=== PATIENT | male | born 1950 | race Caucasian/White ===

== ENCOUNTER 2016-09-24 02:21 | Emergency (ER) | payer MEDICARE, MEDICAID ==
[2016-09-24] MEDS ORDERED: PREDNISONE 20 MG TABLET PO ONE (02:42)
[2016-09-24] MEDS ORDERED: IPRATROPIUM/ALBUTEROL 0.5-2.5 MG/3 ML AMPUL NEB ONE ×3 (02:42→04:14)
[2016-09-24 03:01] LABS: ABSOLUTE BASOPHILS # (AUTO) 0.1 10^3/uL (0.0-0.2); ABSOLUTE EOSINOPHILS # (AUTO) 0.6 10^3/uL (0.0-0.6); ABSOLUTE LYMPHOCYTES (AUTO) 3.2 10^3/uL (0.5-4.7); ABSOLUTE MONOCYTES (AUTO) 1.7 10^3/uL (0.1-1.4); ABSOLUTE NEUT (AUTO) 4.6 10^3/uL (1.7-8.2); BASOPHILS % (AUTO) 0.8 % (0-2); EOSINOPHILS % (AUTO) 5.8 % (0-6); HEMATOCRIT 46.5 % (37.9-51.0); HGB HCT DIFFERENCE -1.5; LYMPHOCYTES % (AUTO) 31.5 % (13-45); MEAN CORPUSCULAR HEMOGLOBIN 29.4 pg (27.0-33.4); MEAN CORPUSCULAR HGB CONC 32.2 g/dL (32.0-36.0); MEAN CORPUSCULAR VOLUME 91 fl (80-97); RED BLOOD COUNT 5.09 10^6/uL (4.35-5.55); RED CELL DISTRIBUTION WIDTH 13.2 % (11.5-14.0); SEGMENTED NEUTROPHILS % (AUTO) 44.9 % (42-78); WHITE BLOOD COUNT 10.2 10^3/uL (4.0-10.5)
[2016-09-24 03:29] LABS: CREATINE KINASE MB 0.29 ng/mL (<4.55)
[2016-09-24] MEDS: ALBUTEROL SULFATE 0.083% NEB 2.5 MG/3 ML AMPUL NEB SCH ×2 (03:29→04:39)
[2016-09-24 03:30] LABS: ALBUMIN 3.7 g/dL (3.5-5.0); ALKALINE PHOSPHATASE 154 U/L (38-126); ANION GAP 12 (5-19); ASPARTATE AMINO TRANSFERASE 47 U/L (17-59); BILIRUBIN,TOTAL 0.5 mg/dL (0.2-1.3); BLOOD UREA NITROGEN 10 mg/dL (7-20); CALCIUM 9.7 mg/dL (8.4-10.2); CARBON DIOXIDE 29 mmol/L (22-30); CHLORIDE 100 mmol/L (98-107); CREATINE KINASE 29 U/L (55-170); CREATININE RESULT 0.83 mg/dL (0.52-1.25); GLUCOSE 258 mg/dL (75-110); POTASSIUM 4.1 mmol/L (3.6-5.0); SODIUM 140.9 mmol/L (137-145)
[2016-09-24 03:36] LABS: TROPONIN I < 0.012 ng/mL
[2016-09-24 03:48] LABS: ALANINE AMINOTRANSFERASE 37 U/L (21-72)
[2016-09-24] MEDS ORDERED: NORMAL SALINE 1000 ML 1,000 ML IV ONE (04:14)
--- NOTE | 2016-09-24 04:18 | ER Document Report ---
ED Respiratory Problem - General Chief Complaint: Breathing Difficulty Stated Complaint: DIFFICULTY BREATHING Time seen by provider: 04:15 Notes: Patient is a 66-year-old male that comes by EMS for chief complaint of difficulty breathing, patient states that for over a week he has had cough and wheezing, patient smokes, has a known history of COPD, patient is not on oxygen at home. Patient denies fever, chest pain, headache, abdominal pain. Past medical history of hypertension and diabetes. TRAVEL OUTSIDE OF THE [place] IN LAST 30 DAYS: No - Related Data Allergies/Adverse Reactions: Corticosteroids (Glucocorticoids) Allergy (Unknown, Verified 09/24/16 07:45) naproxen Allergy (Verified 09/24/16 07:45) Past Medical History - General Information source: Patient - Social History Smoking Status: Current Every Day Smoker Chew tobacco use (# tins/day): No Frequency of alcohol use: None Drug Abuse: None Lives with: Alone Family History: Reviewed & Not Pertinent Patient has suicidal ideation: No Patient has homicidal ideation: No - Past Medical History Cardiac Medical History: Reports: Hx Hypertension Pulmonary Medical History: Reports: Hx Bronchitis, Hx COPD, Hx Tuberculosis Neurological Medical History: Reports: Hx Cerebrovascular Accident, Hx Seizures Endocrine Medical History: Reports: Hx Diabetes Mellitus Type 2 Renal/ Medical History: Denies: Hx Peritoneal Dialysis GI Medical History: Reports: Hx Gastroesophageal Reflux Disease, Hx Ulcer Musculoskeltal Medical History: Reports Hx Arthritis Psychiatric Medical History: Reports: Hx Depression Past Surgical History: Reports: Hx Cholecystectomy - Immunizations Hx Diphtheria, Pertussis, Tetanus Vaccination: Yes Review of Systems - Review of Systems Constitutional: No symptoms reported EENT: No symptoms reported Cardiovascular: No symptoms reported Respiratory: See HPI Gastrointestinal: No symptoms reported Genitourinary: No symptoms reported Male Genitourinary: No symptoms reported Musculoskeletal: No symptoms reported Skin: No symptoms reported Hematologic/Lymphatic: No symptoms reported Neurological/Psychological: No symptoms reported Physical Exam - Vital signs Vitals: Pulse Ox 94 09/24/16 02:40 Interpretation: Normal - General General appearance: Appears well, Alert - HEENT Head: Normocephalic, Atraumatic Eyes: Normal Extraocular movements intact: Yes Eyelashes: Normal - Respiratory Respiratory status: Tachypnea - Mild Chest status: Nontender Breath sounds: Decreased air movement, Nonproductive cough, Wheezing - Cardiovascular Rhythm: Regular. No: Tachycardia Heart sounds: Normal auscultation, S1 appreciated, S2 appreciated Murmur: No - Abdominal Inspection: Normal Distension: No distension Bowel sounds: Normal Tenderness: Nontender. No: Tender Organomegaly: No organomegaly - Back Back: Normal, Nontender - Extremities General upper extremity: Normal inspection, Nontender, Normal color, Normal ROM , Normal temperature General lower extremity: Normal inspection, Nontender, Normal color, Normal ROM , Normal temperature, Normal weight bearing. No: Juan's sign - Neurological Neuro grossly intact: Yes Cognition: Normal Orientation: AAOx4 Miki Coma Scale Eye Opening: Spontaneous Miki Coma Scale Verbal: Oriented Miki Coma Scale Motor: Obeys Commands Miki Coma Scale Total: 15 Speech: Normal Motor strength normal: LUE, RUE, LLE, RLE Sensory: Normal - Psychological Associated symptoms: Normal affect, Normal mood - Skin Skin Temperature: Warm Skin Moisture: Dry Skin Color: Normal Course - Re-evaluation Re-evalutation: CBC, chemistry unremarkable with mild hyperglycemia. Patient's symptoms of tachypnea resolved, patient has some wheezing on examination which is most likely baseline. Patient no longer complaining of shortness of breath, smiling , talkative, ambulates around the room, pulse oxygenation 94% despite ambulation around the halls. Chest x-ray unremarkable except for 3 cm left- sided lung abnormality probably a mass. Discussed with patient, patient states he will follow-up with primary care in regards to this. Does not appear to be significantly larger. Discussed that this definitely could be cancer and patient needs to be seen for this. Patient states he will do this within the following week, he states that he'll return for any concerning or worsening symptoms. Discussed using prednisone with patient's diabetes, he states he will take his diabetic medications and be careful about what he eats. Patient repeats he is ready to go home. - Vital Signs Vital signs: Temp Pulse Resp BP Pulse Ox 98.2 F 16 126/74 H 90 L 09/24/16 02:45 09/24/16 07:00 09/24/16 06:00 09/24/16 07:00 - Laboratory Result Diagrams: 09/24/16 02:33 09/24/16 02:33 Laboratory results interpreted by me: 09/24/16 09/24/16 02:33 02:33 Monocytes % 17.0 H Absolute Monocytes 1.7 H Glucose 258 H Alkaline Phosphatase 154 H Creatine Kinase 29 L Discharge - Discharge Clinical Impression: Wheezing, COPD exacerbation, Abnormal chest x-ray Condition: Stable Disposition: HOME, SELF-CARE Additional Instructions: Your workup indicates a COPD exacerbation. Take the prednisone, take diabetes medication, avoid sugary foods and carbohydrates because prednisone can raise your blood sugar. Take azithromycin antibiotic as directed. Please follow-up with your provider within the next several days. Your chest x-ray shows a left-sided 3 cm lung mass. This is concerning for cancer needs to be further evaluated. Return to emergency department for any concerning or worsening symptoms. Prescriptions: Azithromycin [Zithromax 250 mg Tablet] 250 mg PO ASDIR PRN #6 tablet PRN Reason: Prednisone [Deltasone 10 mg Tablet] 10 mg PO ASDIR PRN #21 tablet PRN Reason:
[2016-09-24] MEDS: MAGNESIUM SULFATE/D5W 100 ML IV SCH ×2 (04:45→06:00)
[2016-09-24 09:30] VITALS: BP 124/98
--- NOTE | 2016-09-24 10:04 | EKG REPORT ---
SEVERITY:- BORDERLINE ECG - SINUS TACHYCARDIA WITH IRREGULAR RATE 88-152 BORDERLINE T WAVE ABNORMALITIES : Confirmed by: Hermann Nieto MD 24-Sep-2016 10:04:01
== END 2016-09-24 08:50 | disposition home or self-care (01) ==
LOC: ER 02:21
DX: J44.1 Chronic obstructive pulmonary disease with (acute) exacerbation (principal); R05 Cough; R91.8 Other nonspecific abnormal finding of lung field; R06.82 Tachypnea, not elsewhere classified; I10 Essential (primary) hypertension; E11.65 Type 2 diabetes mellitus with hyperglycemia; F17.200 Nicotine dependence, unspecified, uncomplicated; Z88.8 Allergy status to other drugs, medicaments and biological substances; Z86.73 Personal history of transient ischemic attack (TIA), and cerebral infarction without residual deficits
CPT/HCPCS: 93005; 94640 ×2; 99285; 96365; 36415; 82553; 82550; 85025; 80053; 84484; 83880; 71010; 93010; J3475; A9270 ×3; J7030; J7512; J7620

== ENCOUNTER 2016-10-24 22:38 | Inpatient (IN) | payer MEDICARE, MEDICAID ==
[2016-10-25] MEDS ORDERED: ALBUTEROL SULFATE 0.083% NEB 2.5 MG/3 ML AMPUL NEB ONE ×2 (01:28→04:29)
[2016-10-25] MEDS ORDERED: NORMAL SALINE 1000 ML 1,000 ML IV ONE (01:30)
[2016-10-25] MEDS ORDERED: MAGNESIUM SULFATE/D5W 100 ML IV SCH (01:30)
[2016-10-25] MEDS ORDERED: METHYLPREDNISOLONE INJ 125 MG/2 ML SDV IV ONE (01:30)
[2016-10-25 02:39] LABS: ABSOLUTE BASOPHILS # (AUTO) 0.1 10^3/uL (0.0-0.2); ABSOLUTE EOSINOPHILS # (AUTO) 0.7 10^3/uL (0.0-0.6); ABSOLUTE LYMPHOCYTES (AUTO) 2.1 10^3/uL (0.5-4.7); ABSOLUTE MONOCYTES (AUTO) 1.3 10^3/uL (0.1-1.4); ABSOLUTE NEUT (AUTO) 6.7 10^3/uL (1.7-8.2); BASOPHILS % (AUTO) 0.6 % (0-2); EOSINOPHILS % (AUTO) 6.4 % (0-6); HEMATOCRIT 45.1 % (37.9-51.0); HEMOGLOBIN 15.2 g/dL (13.5-17.0); HGB HCT DIFFERENCE 0.5; LYMPHOCYTES % (AUTO) 19.4 % (13-45); MEAN CORPUSCULAR HEMOGLOBIN 29.9 pg (27.0-33.4); MEAN CORPUSCULAR HGB CONC 33.7 g/dL (32.0-36.0); MEAN CORPUSCULAR VOLUME 89 fl (80-97); MONOCYTES % (AUTO) 12.3 % (3-13); RED BLOOD COUNT 5.08 10^6/uL (4.35-5.55); SEGMENTED NEUTROPHILS % (AUTO) 61.3 % (42-78)
[2016-10-25 02:50] LABS: ANION GAP 13 (5-19); BLOOD UREA NITROGEN 9 mg/dL (7-20); CALCIUM 9.8 mg/dL (8.4-10.2); CARBON DIOXIDE 26 mmol/L (22-30); CHLORIDE 102 mmol/L (98-107); CREATININE RESULT 0.84 mg/dL (0.52-1.25); GLUCOSE 214 mg/dL (75-110); POTASSIUM 4.3 mmol/L (3.6-5.0)
[2016-10-25] MEDS ORDERED: IPRATROPIUM/ALBUTEROL 0.5-2.5 MG/3 ML AMPUL NEB ONE (03:18)
[2016-10-25] MEDS ORDERED: DOXYCYCLINE HYCLATE 100 MG TABLET PO ONE (03:20)
--- NOTE | 2016-10-25 03:20 | ER Document Report ---
ED General - General Chief Complaint: Shortness Of Breath Stated Complaint: SHORTNESS OF BREATH Notes: Patient is a 66-year-old male with past history of COPD, active smoker, a diagnosis of a lung mass in September 2016 for which she has yet to follow-up, and hypertension who presents with 2 days of progressively worsening shortness of breath. States he's been using his albuterol inhaler home with minimal to no improvement of symptoms. States he's had similar symptoms in the past with COPD exacerbations. His symptoms are worsened by smoking and exertion. He has not seen his primary care doctor regarding today's concerns. He denies any fever, nausea, vomiting or diarrhea. No chest pain. TRAVEL OUTSIDE OF THE [place] IN LAST 30 DAYS: No - Related Data Allergies/Adverse Reactions: naproxen Allergy (Verified 10/25/16 01:31) Past Medical History - General Information source: Patient - Social History Smoking Status: Current Every Day Smoker Frequency of alcohol use: None Drug Abuse: None Lives with: Spouse/Significant other Family History: Reviewed & Not Pertinent - Past Medical History Cardiac Medical History: Reports: Hx Hypertension Pulmonary Medical History: Reports: Hx Bronchitis, Hx COPD, Hx Tuberculosis Neurological Medical History: Reports: Hx Cerebrovascular Accident, Hx Seizures Endocrine Medical History: Reports: Hx Diabetes Mellitus Type 2 Renal/ Medical History: Denies: Hx Peritoneal Dialysis GI Medical History: Reports: Hx Gastroesophageal Reflux Disease, Hx Ulcer Musculoskeltal Medical History: Reports Hx Arthritis Psychiatric Medical History: Reports: Hx Depression Past Surgical History: Reports: Hx Cholecystectomy - Immunizations Hx Diphtheria, Pertussis, Tetanus Vaccination: Yes Review of Systems - Review of Systems Notes: Constitutional: Negative for fever. HENT: Negative for sore throat. Eyes: Negative for visual changes. Cardiovascular: Negative for chest pain. Respiratory: Positive for shortness of breath and cough Gastrointestinal: Negative for abdominal pain, vomiting or diarrhea. Genitourinary: Negative for dysuria. Musculoskeletal: Negative for back pain. Skin: Negative for rash. Neurological: Negative for headaches, weakness or numbness. 10 point ROS negative except as marked above and in HPI. Physical Exam - Vital signs Vitals: Temp Pulse Resp BP Pulse Ox 97.8 F 103 H 18 124/82 96 10/24/16 22:40 10/24/16 22:40 10/24/16 22:40 10/24/16 22:40 10/24/16 22:40 Interpretation: Tachycardic, Tachypneic Notes: PHYSICAL EXAMINATION: GENERAL: Appears to be in moderate respiratory distress. Somewhat ill in appearance. HEAD: Atraumatic, normocephalic. EYES: Pupils equal round and reactive to light, extraocular movements intact, sclera anicteric, conjunctiva are normal. ENT: nares patent, oropharynx clear without exudates. Dry mucous membranes. NECK: Normal range of motion, supple without lymphadenopathy LUNGS: Poor air movement bilaterally with diffuse expiratory wheezing in all lung jensen. HEART: Regular tachycardia without murmurs. ABDOMEN: Soft, nontender, normoactive bowel sounds. No guarding, no rebound. No masses appreciated. EXTREMITIES: Normal range of motion, no pitting or edema. No cyanosis. NEUROLOGICAL: No focal neurological deficits. Moves all extremities spontaneously and on command. PSYCH: Normal mood, normal affect. SKIN: Warm, Dry, normal turgor, no rashes or lesions noted. Course - Re-evaluation Re-evalutation: 10/25/16 0110 Patient arrives in moderate respiratory distress, retracting with poor air movement bilaterally. He has diffuse expiratory wheezing. Presentation is consistent with an exacerbation of his baseline COPD and he does admit to continued use of cigarettes. He was started on continuous nebulizer, IV magnesium and Solu-Medrol be administered. 0215-patient is continuing to have shortness of breath although his oxygen saturation has improved on nebulizers to 96%. He continues to have diffuse expiratory wheezing and tightness of air movement. His work of breathing is also moderately improved and his respiratory rate is now 23-24. 0315-patient continues to have wheezing, diminished air movement bilaterally and states that overall he does not feel much better after the initial nebulizers, magnesium and Solu-Medrol. Anticipate the patient will require admission 10/25/16 04:29 Patient continues to have pursed lip breathing, bilateral wheezing although no respiratory distress. Satting 96% on room air. Care transferred to Dr. Óscar Portillo while we await Dr. oMhr to be in a position to admit this patient. - Vital Signs Vital signs: Temp Pulse Resp BP Pulse Ox 97.8 F 103 H 21 H 119/72 95 10/24/16 22:40 10/24/16 22:40 10/25/16 01:10 10/25/16 01:10 10/25/16 01:10 - Laboratory Result Diagrams: 10/25/16 01:50 10/25/16 01:50 Laboratory results interpreted by me: 10/25/16 10/25/16 01:50 01:50 WBC 11.0 H Eosinophils % 6.4 H Absolute Eosinophils 0.7 H Glucose 214 H - Diagnostic Test Radiology reviewed: Image reviewed, Reports reviewed Radiology results interpreted by me: 10/25/16 03:22 Chest x-ray: Known left lung mass Critical Care Note - Critical Care Note Total time excluding time spent on procedures (mins): 35 Comments: Critical care time spent obtaining history from patient or surrogate, discussions with consultants, development of treatment plan with patient or surrogate, evaluation of patient's response to treatment, examination of patient , ordering and performing treatments and interventions, ordering and review of laboratory studies, re-evaluation of patient's condition, ordering and review of radiographic studies and review of old charts Discharge - Discharge Clinical Impression: COPD exacerbation, Respiratory distress, Mass of left lung Condition: Fair Disposition: ADMITTED INPATIENT Admitting Provider: Hospitalist Unit Admitted: [facility]
[2016-10-25] MEDS ORDERED: GUAIFENESIN SYRP 200 MG/10 ML UDC PO PRN (07:49)
[2016-10-25] MEDS ORDERED: DEXTROSE 50%-WATER 25 GM/50 ML DISP.SYRIN IV PRN ×2 (07:51)
[2016-10-25] MEDS ORDERED: GLUCAGON,HUMAN RECOMB 1 MG INJ IM PRN (07:51)
[2016-10-25] MEDS ORDERED: DEXTROSE 40% GEL 15 GM TUBE PO PRN ×2 (07:51)
[2016-10-25] MEDS: IPRATROPIUM/ALBUTEROL 0.5-2.5 MG/3 ML AMPUL NEB SCH ×3 (08:46→20:11)
[2016-10-25] MEDS ORDERED: LANSOPRAZOLE 30 MG TAB.RAP.DR PO ONE (09:00)
[2016-10-25] MEDS ORDERED: NICOTINE 21 MG/24 HR PATCH.TD24 TD PRN (09:36)
[2016-10-25] MEDS: ENOXAPARIN SODIUM INJ 40 MG/0.4 ML DISP.SYRIN SUBCUT SCH (09:51)
[2016-10-25] MEDS: CEFEPIME HCL 2 GM in DEXTROSE 5%-WATER 50 ML IV SCH ×2 (09:52→21:20)
[2016-10-25] MEDS: METHYLPREDNISOLONE INJ 125 MG/2 ML SDV IV SCH ×2 (09:52→17:02)
--- NOTE | 2016-10-25 09:52 | PDOC H&P ---
History of Present Illness Admission Date/PCP: 10/25/16 04:44 [facility] Patient complains of: Short of breath History of Present Illness: IVELISSE RITTER is a 66 year old male, with underlying COPD, 2-1/2-3 pack per day smoker, who presents to the emergency room for evaluation of a 2 to three-day history of slowly progressive worsening shortness of breath, in particular with much of any exertion or continued smoking. Dry cough. Little relief with his albuterol inhaler at home. Similar symptoms in past with COPD exacerbation. Denies fever chills, nausea vomiting, diarrhea or dysuria. No chest pain. Patient still experiencing a fair amount of wheezing despite multiple treatments given in the emergency room so far. Patient has been discussed with emergency room physician who evaluated the patient. . Laboratory results are listed in [place] and are reviewed. X-ray summary results are listed below, with full report(s) reviewed. . Social history/personal habits: . Currently a resident of [facility]. 3 children, all of whom are . No alcohol use for approximately a year; fairly heavy use in the past, by his description. No illicit drug use. Allergies/adverse reactions are listed in [place] and are reviewed. Home medications are to be reconciled by nursing staff in [facility] from the medication administration record from the [facility].. [facility] may not accurately reflect patient's true medications, dosages, and/or frequencies. REVIEW OF SYSTEMS: Constitutional: No fever or chills. Eyes: Wears glasses. ENT: No swallowing problems or complaints. No hearing problems or complaints. Pulmonary: See history and present illness. Cardiovascular: No current complaints, including chest pain. Gastrointestinal: No current complaints, including nausea or vomiting. Skin: Occasional forearm rash. Hematologic: Easy bruising. Neurologic: No current complaints, including numbness or tingling. Musculoskeletal: No current complaints, including painful joints. Psychiatric: Mild Anxiety depression; denies suicidal or homicidal ideation. Endocrine: No current complaints, including polyuria. Genitourinary: No current complaints, including dysuria. PHYSICAL EXAMINATION: 5 feet 5 inches tall. 98.6 kg. BMI 36.2 kg/m. Pulse 117 and regular. 95% saturation on room air. Respirations are 20 and unlabored. Blood pressure 104/ 55. Temperature 97.8. Obese somewhat chronically ill-appearing male who nevertheless appears approximately his stated age. Pleasant awake alert and cooperative. Slightly gruff personality. No obvious distress other than somewhat anxious. Skin is warm and dry. No grossly obvious evidence of rash in areas of skin examined. No subcutaneous nodules palpated. ENT: Hearing grossly normal to normal conversation. Tongue midline on protrusion pink and slightly tacky. Eyes: No scleral icterus. Pupils equal and reactive to light at 4 mm. [place] conjunctivae. Neck is supple and nontender to gentle active range of motion and palpation. Midline trachea. No palpable thyroid nodule mass enlargement or tenderness. Lymphatic: No palpable cervical or clavicular nodes. Neck and lymphatic exams limited by patient body habitus. Psychiatric: At best fair insight into acute and chronic medical issues. Oriented to time location and why here. Somewhat of a poor historian at times. Lungs: Auscultation reveals equal breath sounds bilaterally. No use of accessory respiratory muscles. Mild inspiratory and expiratory wheezing, brief , throughout both lungs. Cardiovascular: Heart regular rate and rhythm, without gallop murmur or rub. No carotid or abdominal aortic bruits. No ankle or pedal edema. Faintly palpable dorsalis pedis pulses. Abdomen: soft, slightly obese, nontender with positive bowel sounds. Unable to adequately evaluate abdomen for masses or organomegaly due to body habitus. Extremities: Feet are warm and dry. No calf tenderness to compression. No grossly obvious visual evidence of calf swelling. Gentle manipulation of lower extremities fails to reveal any obvious evidence of injury or instability to knees hips or ankles. Neurologic: Moves upper extremities grossly normally. Patellar reflexes absent. Absent Babinski. Light touch is intact at feet. Dorsiflexion and plantarflexion of feet 5 / 5 and symmetric. Past Medical History Cardiac Medical History: Reports: Hyperlipidema, Hypertension Denies: Congestive Heart Failure, DVT, Myocardial Infarction, Pulmonary Embolism Pulmonary Medical History: Reports: Bronchitis, Chronic Obstructive Pulmonary Disease (COPD), Tuberculosis - History of EENT Medical History: Reports: Eyes - Wears glasses; legally blind Denies: Ears, Throat Neurological Medical History: Reports: Ischemic CVA - Multiple prior, Seizures - Multiple prior, typically accompanying his strokes. Denies: Hemorrhagic CVA Endocrine Medical History: Denies: Diabetes Mellitus Type 1, Diabetes Mellitus Type 2, Hyperthyroidism, Hypothyroidism Renal/ Medical History: Reports: None GI Medical History: Reports: Gastroesophageal Reflux Disease, Peptic Ulcer Disease - Quite distant history Denies: Cirrhosis, Hepatitis Skin Medical History: Reports: Other - Occasional forearm rash. Psychiatric Medical History: Reports: Alcohol Dependency - History of same; no alcohol use for approximately one year, according to patient., Depression, General Anxiety Disorder, Tobacco Dependency Denies: Substance Abuse Hematology: Denies: Anemia Infectious Medical History: Denies: Hepatitis B, Hepatitis C Past Surgical History Past Surgical History: Reports: Cholecystectomy Social History Information Source: Patient, Emergency Med Personnel, [facility] Records Lives with: [facility] Smoking Status: Current Every Day Smoker Frequency of Alcohol Use: None Hx Recreational Drug Use: No Drugs: None Hx Prescription Drug Abuse: No - Advance Directive Resuscitation Status: Full Code Surrogate healthcare decision maker:: Uncertain at this point in time. Family History Family History: Reviewed & Not Pertinent Parental Family History Reviewed: Yes Children Family History Reviewed: Yes Sibling(s) Family History Reviewed.: Yes Medication/Allergy Home Medications: Albuterol Sulfate [Ventolin Hfa 8 gm Mdi (1 Mdi/ER Disp)] 2 puff PO Q4HP PRN Aspirin [Aspirin 81 mg Chewable Tablet] 81 mg PO DAILY 10/25/16 Atorvastatin Calcium [Lipitor 80 mg Tablet] 80 mg PO QAM 10/25/16 Fluoxetine HCl [Prozac] 40 mg PO DAILY 10/25/16 Lisinopril [Prinivil] 20 mg PO DAILY 10/25/16 Metformin HCl 500 mg PO QPM 10/25/16 Amox Tr/Potassium Clavulanate [Augmentin "500" Tablet] 1 tab PO Q8 #18 tablet 11/02/16 Apixaban [Eliquis 5 mg Tablet] 5 mg PO Q12 tablet 11/02/16 Diltiazem HCl [Diltiazem 24Hr Cd] 240 mg PO DAILY #30 cap.er.24h 11/02/16 Dronedarone Hydrochloride [Multaq 400 mg Tablet] 400 mg PO BIDBS #60 tablet 10/20 Insulin Glargine,Hum.rec.anlog [Lantus Insulin 100 Unit/1 ml 10 ml] 20 unit SUBCUT QHS unit 11/02/16 Insulin Lispro [Humalog Insulin (Lispro) 100 unit/mL] 8 unit SUBCUT AC unit 03/ 02/17 Nicotine [Nicoderm 21 mg/24 Hr Transderm Patch] 1 each TD DAILYP PRN patch.td24 11/02/16 Prednisone [Deltasone 20 mg Tablet] 10 mg PO DAILY #39 tablet 11/02/16 Allergies/Adverse Reactions: naproxen Allergy (Verified 10/25/16 01:31) Physical Exam Vital Signs: Temp Pulse Resp BP Pulse Ox 97.8 F 103 H 16 107/63 96 10/24/16 22:40 10/24/16 22:40 10/25/16 07:01 10/25/16 07:01 10/25/16 07:01 Intake & Output 10/24/16 10/25/16 10/26/16 00:59 00:59 00:59 Weight 93.44 kg Results Impressions: Chest X-Ray 10/25/16 02:23 IMPRESSION: LEFT UPPER LOBE DENSITY SECONDARY TO KNOWN MASS. NO ACUTE FINDINGS. Assessment & Plan - Diagnosis (1) COPD exacerbation Is this a current diagnosis for this admission?: YesPlan: Patient will be admitted under COPD exacerbation protocol. Incentive spirometry twice a day. Scheduled DuoNeb's. PRN albuterol nebs Solu-Medrol Prevacid for gastritis prophylaxis. Antibiotics will consist of cefepime and intravenous Zithromax.. I strongly encouraged patient to notify staff should patient feel that respiratory status is worsening. Patient is a full code. I have strongly encouraged patient not to get out of bed without notifying staff , , to avoid a fall with injury. Knee high SCDs for DVT prophylaxis, along with subcutaneous Lovenox Impression and plans were discussed with patient, who concurs. Time spent in evaluation and management of patient: 54 minutes. (2) Legally blind Is this a current diagnosis for this admission?: Yes (3) Mass of left lung Is this a current diagnosis for this admission?: YesPlan: Reportedly has a scheduled initial appointment for further evaluation of above. Still has not been to this appointment. (4) Tobacco dependency Is this a current diagnosis for this admission?: Yes (5) Seizure Is this a current diagnosis for this admission?: YesPlan: Seizure precautions.Resume home medications as appropriate once these have been determined and reviewed. - Inpatient Certification Based on my medical assessment, after consideration of the patient's comorbidities, presenting symptoms, or acuity I expect that the services needed warrant INPATIENT care.: Yes I certify that my determination is in accordance with my understanding of Medicare's requirements for reasonable and necessary INPATIENT services [42 CFR 412.3e].: Yes Medical Necessity: Need For IV Fluids, Need For Continuous Telemetry Monitoring , Need for Nebulizer Therapy and Monitoring of Response, Need for IV Antibiotics , Risk of Complication if Not Cared For in Hospital, Risk of Diagnosis Which Will Require Inpatient Eval/Care/Monitoring Post Hospital Care: D/C or Transfer Summary
[2016-10-25] MEDS: AZITHROMYCIN 500 MG in DEXTROSE 5%-WATER 250 ML IV SCH (09:54)
[2016-10-25] MEDS: NORMAL SALINE 1000 ML 1,000 ML IV PRN (09:59)
[2016-10-25] MEDS ORDERED: CEFEPIME 2 GM/D5W RTU 50 ML IV SCH (10:00)
[2016-10-25] MEDS: INSULIN LISPRO 100 UNIT/ML 3 ML VIAL SUBCUT PRN ×4 (11:37→22:18)
[2016-10-25] MEDS: LANSOPRAZOLE 30 MG TAB.RAP.DR PO SCH (16:40)
[2016-10-26] MEDS: ALBUTEROL SULFATE 0.083% NEB 2.5 MG/3 ML AMPUL NEB PRN (00:38)
[2016-10-26] MEDS: METHYLPREDNISOLONE INJ 125 MG/2 ML SDV IV SCH ×3 (01:36→17:11)
[2016-10-26] MEDS: LANSOPRAZOLE 30 MG TAB.RAP.DR PO SCH ×2 (06:27→16:38)
[2016-10-26] MEDS: ENOXAPARIN SODIUM INJ 40 MG/0.4 ML DISP.SYRIN SUBCUT SCH (07:48)
[2016-10-26] MEDS: INSULIN LISPRO 100 UNIT/ML 3 ML VIAL SUBCUT PRN ×4 (07:54→22:31)
[2016-10-26] MEDS: IPRATROPIUM/ALBUTEROL 0.5-2.5 MG/3 ML AMPUL NEB SCH ×3 (08:23→20:01)
[2016-10-26] MEDS: AZITHROMYCIN 500 MG in DEXTROSE 5%-WATER 250 ML IV SCH (09:05)
[2016-10-26] MEDS: CEFEPIME HCL 2 GM in DEXTROSE 5%-WATER 50 ML IV SCH ×2 (09:06→22:30)
[2016-10-26 09:36] LABS: APPEARANCE,URINE CLEAR; BILIRUBIN,URINE NEGATIVE (NEGATIVE); GLUCOSE, URINE >=500 mg/dL (NEGATIVE); KETONES,URINE TRACE mg/dL (NEGATIVE); LEUKOCYTE ESTERASE,URINE NEGATIVE (NEGATIVE); NITRITE,URINE NEGATIVE (NEGATIVE); PROTEIN,URINE NEGATIVE (NEGATIVE); URINE SPECIFIC GRAVITY 1.017; UROBILINOGEN,URINE NEGATIVE mg/dL (<2.0)
--- NOTE | 2016-10-26 12:15 | PDOC PROGRESS REPORT ---
Subjective Progress Note for:: 10/26/16 Subjective:: Patient reports improvement in symptoms. Coughing is less. Shortness of breath is better. Wheezing has resolved. Able to move around better. No chills or fever nor diarrhea. No abdominal pain or chest pain. Blood sugar reportedly elevated and uncontrolled. Physical Exam Vital Signs: Temp Pulse Resp BP Pulse Ox 98.1 F 98 16 126/70 H 98 10/26/16 07:48 10/26/16 08:23 10/26/16 08:23 10/26/16 07:48 10/26/16 08:23 Intake & Output 10/25/16 10/26/16 10/27/16 06:59 06:59 06:59 Intake Total 4285 Output Total 3500 Balance 785 Weight 97 kg General appearance: PRESENT: no acute distress, cooperative, morbidly obese Head exam: PRESENT: normocephalic Eye exam: PRESENT: EOMI Mouth exam: PRESENT: moist, neck supple Neck exam: ABSENT: JVD Respiratory exam: PRESENT: decreased breath sounds. ABSENT: rhonchi, wheezes Cardiovascular exam: PRESENT: RRR. ABSENT: gallop GI/Abdominal exam: PRESENT: normal bowel sounds, soft. ABSENT: distended, tenderness Extremities exam: ABSENT: pedal edema Neurological exam: PRESENT: alert, awake, oriented to situation Skin exam: PRESENT: dry, warm. ABSENT: cyanosis Results Laboratory Results: 10/26/16 09:10 Urine Color STRAW Urine Appearance CLEAR Urine pH 6.0 Ur Specific Hume 1.017 Urine Protein NEGATIVE Urine Glucose (UA) >=500 H Urine Ketones TRACE H Urine Blood SMALL H Urine Nitrite NEGATIVE Ur Leukocyte Esterase NEGATIVE Urine WBC (Auto) 1 Urine RBC (Auto) 2 Impressions: Chest X-Ray 10/25/16 02:23 IMPRESSION: LEFT UPPER LOBE DENSITY SECONDARY TO KNOWN MASS. NO ACUTE FINDINGS. Assessment & Plan - Diagnosis (1) COPD exacerbation Is this a current diagnosis for this admission?: Yes (2) Mass of left lung Is this a current diagnosis for this admission?: Yes (3) Seizure Is this a current diagnosis for this admission?: Yes (4) Type 2 diabetes mellitus with hyperglycemia Qualifiers: Diabetes mellitus fpc insulin use: without fpc use Qualified Code(s): E11.65 - Type 2 diabetes mellitus with hyperglycemia Is this a current diagnosis for this admission?: Yes (5) Hypertension Qualifiers: Hypertension type: essential hypertension Qualified Code(s): I10 - Essential (primary) hypertension Is this a current diagnosis for this admission?: Yes (6) GERD (gastroesophageal reflux disease) Qualifiers: Esophagitis presence: without esophagitis Qualified Code(s): K21.9 - Gastro-esophageal reflux disease without esophagitis Is this a current diagnosis for this admission?: Yes (7) History of stroke Is this a current diagnosis for this admission?: Yes (8) Depression Qualifiers: Depression Type: unspecified Qualified Code(s): F32.9 - Major depressive disorder, single episode, unspecified Is this a current diagnosis for this admission?: Yes (9) Osteoarthritis Qualifiers: Osteoarthritis location: unspecified site Osteoarthritis type: unspecified Qualified Code(s): M19.90 - Unspecified osteoarthritis, unspecified site Is this a current diagnosis for this admission?: Yes - Time Time Spent with patient: 25-34 minutes - Plan Summary Plan Summary: We will begin Lantus, as well as prandial coverage with NovoLog. Continue sliding scale. Continue steroids and bronchodilators. Patient informed about the presence of the lung mass is now aware. He is also aware that the possibility of malignancy is present. Awaiting pulmonary evaluation. Consult diabetic teaching. Continue supportive care.
[2016-10-26] MEDS: NORMAL SALINE 1000 ML 1,000 ML IV PRN (14:52)
[2016-10-26] MEDS: INSULIN LISPRO 100 UNIT/ML 3 ML VIAL SUBCUT SCH (16:37)
--- NOTE | 2016-10-26 20:03 | CONSULTATION REPORT E ---
Consultation Report NAME: IVELISSE RITTER : 1950 AGE: 66Y DATE: 10/26/2016 313 A TO: INGE COLLINS M.D. FROM: BRY PALACIOS M.D. Requesting Physician HISTORY OF PRESENT ILLNESS: The patient is a 66-year-old male with a past medical history of left upper lobe mass noted in April 2016, admitted this time because of a stroke about 2 days ago. Currently the patient is feeling well, denies any fever or chills, denies any increasing cough or sputum production or denies any hemoptysis or chest pain. SOCIAL HISTORY: Patient is a smoker. PAST MEDICAL HISTORY: History of multiple strokes in the past, obesity, diabetes, GERD, history of asthma/COPD. ALLERGIES: NAPROXEN. FAMILY HISTORY: Unremarkable. REVIEW OF SYSTEMS: CONSTITUTIONAL: No fever or chills, no loss of consciousness. EYES: The patient is legally blind. EARS/NOSE/MOUTH/THROAT: No ear drainage. No nasal discharge. HEAD/NECK: No scalp tenderness, no neck pain. CHEST/LUNGS: No wheezing, no rhonchi and no coarse crackles. No Increased cough, sputum production or hemoptysis. CARDIOVASCULAR: Denies any chest pain or history of heart attack or heart failure. GASTROINTESTINAL: No nausea, vomiting or diarrhea. GENITOURINARY: No dysuria, hematuria or passing of stones. EXTREMITIES: No joint swelling or cellulitis. PHYSICAL EXAMINATION: GENERAL: Patient is awake, alert, coherent, oriented, afebrile, not in acute respiratory distress. VITAL SIGNS: Blood pressure of 118/41. Temperature 97.1. Heart rate of 109. Respiratory rate of 19. Saturation is 93% on room air. EYES: No jaundice or pallor. The patient is blind. EARS/NOSE/MOUTH/THROAT: No ear drainage noted. No nasal discharge. HEAD/NECK: No scalp tenderness. Neck is supple. CHEST/LUNGS: No wheezing. No rhonchi. No coarse crackles. CARDIOVASCULAR: S1, S2 distinct. Normal rate and regular rhythm. ABDOMEN: Flabby. Positive bowel sounds. Soft, nondistended, nontender. EXTREMITIES: No joint swelling or cellulitis. LABORATORY: CBC on 10/25/2016, yesterday, showed a white count of 11, hemoglobin is 15.2, hematocrit 45.1, neutrophils of 6.4, platelet count is 295, Chemistry showed sodium 141, potassium 4.1, chloride 102, CO2 26, BUN 9, creatinine 0.84, glucose is 218, calcium is 9.8. Sugar has been elevated from 451 to 218 every 4 hours. ASSESSMENT: Pulmonary nodule about 31 mm in diameter left upper lobe, spiculated, which started growing on 04/25/[address] scan when compared to 04/19/[address] scan. 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 The patient refused CT-guided FNA biopsy and refusing any diagnostic procedure at this time and wants to think about it. PLAN/RECOMMENDATION: 1. I discussed treatment options and diagnostic procedures with the patient. 2. Instructed patient to call our clinic upon discharge if he decides to proceed with diagnosis and treatment of this left upper lobe nodule. We will sign off tonight. If you have any questions, please feel free to call me. DICTATING PHYSICIAN: INGE COLLINS MD,CASTILLO,MPH [id number] PHY#: [id number] ID: [id number] JOB#: [id number] ACCT: [id number] cc:INGE COLLINS M.D. > EDWARD
[2016-10-26] MEDS ORDERED: INSULIN GLARGINE,HUM.REC.ANLOG 1,000 UNIT/10 ML UNIT SUBCUT SCH (22:00)
[2016-10-26] MEDS: INSULIN GLARGINE,HUM.REC.ANLOG 1,000 UNIT/10 ML UNIT SUBCUT SCH (22:30)
[2016-10-27] MEDS: NORMAL SALINE 1000 ML 1,000 ML IV PRN ×3 (00:15→22:40)
[2016-10-27] MEDS: METHYLPREDNISOLONE INJ 125 MG/2 ML SDV IV SCH ×3 (02:30→17:03)
[2016-10-27] MEDS: LANSOPRAZOLE 30 MG TAB.RAP.DR PO SCH ×2 (05:06→16:02)
[2016-10-27] MEDS: ALBUTEROL SULFATE 0.083% NEB 2.5 MG/3 ML AMPUL NEB PRN ×2 (05:09→16:22)
[2016-10-27] MEDS: INSULIN LISPRO 100 UNIT/ML 3 ML VIAL SUBCUT PRN ×4 (07:30→21:41)
[2016-10-27] MEDS: ENOXAPARIN SODIUM INJ 40 MG/0.4 ML DISP.SYRIN SUBCUT SCH (07:31)
[2016-10-27] MEDS: INSULIN LISPRO 100 UNIT/ML 3 ML VIAL SUBCUT SCH ×3 (07:31→16:02)
[2016-10-27] MEDS: IPRATROPIUM/ALBUTEROL 0.5-2.5 MG/3 ML AMPUL NEB SCH ×3 (07:56→19:57)
[2016-10-27] MEDS: CEFEPIME HCL 2 GM in DEXTROSE 5%-WATER 50 ML IV SCH ×2 (09:46→21:41)
[2016-10-27] MEDS: AZITHROMYCIN 500 MG in DEXTROSE 5%-WATER 250 ML IV SCH (09:47)
[2016-10-27] MEDS: ACETAMINOPHEN 325 MG TABLET PO PRN (10:26)
--- NOTE | 2016-10-27 15:44 | PDOC PROGRESS REPORT ---
Subjective Progress Note for:: 10/27/16 Subjective:: Patient improving slowly. No reported worsening shortness of breath. No chest pain. As her fever nor diarrhea. Physical Exam Vital Signs: Temp Pulse Resp BP Pulse Ox 97.1 F 120 H 20 149/83 H 98 10/27/16 11:34 10/27/16 13:52 10/27/16 13:37 10/27/16 11:34 10/27/16 13:37 Intake & Output 10/26/16 10/27/16 10/28/16 06:59 06:59 06:59 Intake Total 4285 4931 591 Output Total 3500 4060 475 Balance 785 871 116 Weight 97 kg 96.8 kg General appearance: PRESENT: no acute distress, cooperative, obese Head exam: PRESENT: normocephalic Eye exam: PRESENT: EOMI Mouth exam: PRESENT: moist, neck supple Neck exam: ABSENT: JVD Respiratory exam: PRESENT: clear to auscultation danni. ABSENT: rhonchi, wheezes Cardiovascular exam: PRESENT: RRR. ABSENT: gallop GI/Abdominal exam: PRESENT: soft. ABSENT: distended, tenderness Extremities exam: PRESENT: pedal edema Neurological exam: PRESENT: alert, awake Skin exam: PRESENT: dry, warm. ABSENT: cyanosis Results Impressions: Chest X-Ray 10/25/16 02:23 IMPRESSION: LEFT UPPER LOBE DENSITY SECONDARY TO KNOWN MASS. NO ACUTE FINDINGS. Assessment & Plan - Diagnosis (1) COPD exacerbation Is this a current diagnosis for this admission?: Yes (2) Mass of left lung Is this a current diagnosis for this admission?: Yes (3) Seizure Is this a current diagnosis for this admission?: Yes (4) Type 2 diabetes mellitus with hyperglycemia Qualifiers: Diabetes mellitus infirmary attendant insulin use: without nursing home use Qualified Code(s): E11.65 - Type 2 diabetes mellitus with hyperglycemia Is this a current diagnosis for this admission?: Yes (5) Hypertension Qualifiers: Hypertension type: essential hypertension Qualified Code(s): I10 - Essential (primary) hypertension Is this a current diagnosis for this admission?: Yes (6) GERD (gastroesophageal reflux disease) Qualifiers: Esophagitis presence: without esophagitis Qualified Code(s): K21.9 - Gastro-esophageal reflux disease without esophagitis Is this a current diagnosis for this admission?: Yes (7) History of stroke Is this a current diagnosis for this admission?: Yes (8) Depression Qualifiers: Depression Type: unspecified Qualified Code(s): F32.9 - Major depressive disorder, single episode, unspecified Is this a current diagnosis for this admission?: Yes (9) Osteoarthritis Qualifiers: Osteoarthritis location: unspecified site Osteoarthritis type: unspecified Qualified Code(s): M19.90 - Unspecified osteoarthritis, unspecified site Is this a current diagnosis for this admission?: Yes - Time Time Spent with patient: Less than 15 minutes - Plan Summary Plan Summary: Continue steroids and bronchodilators per now. Continue current management and supportive care. If The patient continues to improve, we will discharge in the morning.
[2016-10-27] MEDS: INSULIN GLARGINE,HUM.REC.ANLOG 1,000 UNIT/10 ML UNIT SUBCUT SCH (21:41)
[2016-10-28] MEDS: METHYLPREDNISOLONE INJ 125 MG/2 ML SDV IV SCH ×2 (02:22→09:07)
[2016-10-28] MEDS: LANSOPRAZOLE 30 MG TAB.RAP.DR PO SCH ×2 (05:35→17:22)
[2016-10-28 06:48] LABS: HEMOGLOBIN 13.8 g/dL (13.5-17.0); HGB HCT DIFFERENCE 0.4; MEAN CORPUSCULAR HEMOGLOBIN 29.7 pg (27.0-33.4); MEAN CORPUSCULAR HGB CONC 33.5 g/dL (32.0-36.0); MEAN CORPUSCULAR VOLUME 89 fl (80-97); RED BLOOD COUNT 4.64 10^6/uL (4.35-5.55); RED CELL DISTRIBUTION WIDTH 13.6 % (11.5-14.0); WHITE BLOOD COUNT 13.8 10^3/uL (4.0-10.5)
[2016-10-28 07:09] LABS: ANION GAP 12 (5-19); BLOOD UREA NITROGEN 21 mg/dL (7-20); CALCIUM 9.9 mg/dL (8.4-10.2); CARBON DIOXIDE 23 mmol/L (22-30); CHLORIDE 105 mmol/L (98-107); CREATININE RESULT 0.73 mg/dL (0.52-1.25); GLUCOSE 345 mg/dL (75-110); POTASSIUM 4.3 mmol/L (3.6-5.0)
[2016-10-28] MEDS: ENOXAPARIN SODIUM INJ 40 MG/0.4 ML DISP.SYRIN SUBCUT SCH (08:04)
[2016-10-28] MEDS: INSULIN LISPRO 100 UNIT/ML 3 ML VIAL SUBCUT SCH ×3 (08:05→17:25)
[2016-10-28] MEDS: INSULIN LISPRO 100 UNIT/ML 3 ML VIAL SUBCUT PRN ×4 (08:06→21:40)
[2016-10-28] MEDS: IPRATROPIUM/ALBUTEROL 0.5-2.5 MG/3 ML AMPUL NEB SCH ×3 (08:16→20:16)
[2016-10-28] MEDS: AZITHROMYCIN 500 MG in DEXTROSE 5%-WATER 250 ML IV SCH (09:07)
[2016-10-28] MEDS: CEFEPIME HCL 2 GM in DEXTROSE 5%-WATER 50 ML IV SCH (09:07)
[2016-10-28] MEDS ORDERED: NORMAL SALINE 1000 ML 1,000 ML IV PRN (09:33)
--- NOTE | 2016-10-28 09:38 | PDOC PROGRESS REPORT ---
Subjective Progress Note for:: 10/28/16 Subjective:: Patient reports generalized fatigue otherwise no temperature spikes, no nausea or vomiting, no chest pain, no diarrhea, no worsening shortness of breath. Wheezing has resolved. Patient reports the homeless. Feels generally weak. Physical Exam Vital Signs: Temp Pulse Resp BP Pulse Ox 97.2 F 88 18 142/66 H 96 10/28/16 07:38 10/28/16 08:16 10/28/16 08:16 10/28/16 07:38 10/28/16 08:16 Intake & Output 10/27/16 10/28/16 10/29/16 06:59 06:59 06:59 Intake Total 4931 3790 Output Total 4060 2125 Balance 871 1665 Weight 96.8 kg 101.8 kg General appearance: PRESENT: no acute distress, cooperative, obese Head exam: PRESENT: normocephalic Eye exam: PRESENT: EOMI Mouth exam: PRESENT: moist, neck supple Neck exam: ABSENT: JVD Respiratory exam: PRESENT: decreased breath sounds. ABSENT: rhonchi, wheezes Cardiovascular exam: PRESENT: RRR. ABSENT: gallop GI/Abdominal exam: PRESENT: normal bowel sounds, soft. ABSENT: tenderness Extremities exam: PRESENT: other - Trace lower extremity edema Neurological exam: PRESENT: alert, awake, oriented to situation Skin exam: PRESENT: dry, warm. ABSENT: cyanosis Results Laboratory Results: 10/28/16 06:40 10/28/16 06:40 10/28/16 10/28/16 06:40 06:40 WBC 13.8 H RBC 4.64 Hgb 13.8 Hct 41.0 MCV 89 MCH 29.7 MCHC 33.5 RDW 13.6 Plt Count 272 Sodium 140.0 Potassium 4.3 Chloride 105 Carbon Dioxide 23 Anion Gap 12 BUN 21 H Creatinine 0.73 Est GFR ( Amer) > 60 Est GFR (Non-Af Amer) > 60 Glucose 345 H Calcium 9.9 Impressions: Chest X-Ray 10/25/16 02:23 IMPRESSION: LEFT UPPER LOBE DENSITY SECONDARY TO KNOWN MASS. NO ACUTE FINDINGS. Assessment & Plan - Diagnosis (1) COPD exacerbation Is this a current diagnosis for this admission?: Yes (2) Mass of left lung Is this a current diagnosis for this admission?: Yes (3) Seizure Is this a current diagnosis for this admission?: Yes (4) Type 2 diabetes mellitus with hyperglycemia Qualifiers: Diabetes mellitus medical representative insulin use: without medical representative use Qualified Code(s): E11.65 - Type 2 diabetes mellitus with hyperglycemia Is this a current diagnosis for this admission?: Yes (5) Hypertension Qualifiers: Hypertension type: essential hypertension Qualified Code(s): I10 - Essential (primary) hypertension Is this a current diagnosis for this admission?: Yes (6) GERD (gastroesophageal reflux disease) Qualifiers: Esophagitis presence: without esophagitis Qualified Code(s): K21.9 - Gastro-esophageal reflux disease without esophagitis Is this a current diagnosis for this admission?: Yes (7) History of stroke Is this a current diagnosis for this admission?: Yes (8) Depression Qualifiers: Depression Type: unspecified Qualified Code(s): F32.9 - Major depressive disorder, single episode, unspecified Is this a current diagnosis for this admission?: Yes (9) Osteoarthritis Qualifiers: Osteoarthritis location: unspecified site Osteoarthritis type: unspecified Qualified Code(s): M19.90 - Unspecified osteoarthritis, unspecified site Is this a current diagnosis for this admission?: Yes - Time Time Spent with patient: 25-34 minutes - Plan Summary Plan Summary: We will discontinue intravenous antibiotic and shift to oral Augmentin. We will decrease intravenous steroids and shift to oral prednisone. We will begin physical therapy. Consult certified financial planner for subacute rehabilitation or long -term placement in a rest home.
[2016-10-28] MEDS ORDERED: PREDNISONE 20 MG TABLET PO ONE (12:00)
[2016-10-28] MEDS ORDERED: AMOXICILLIN TR/POT CLAVULANATE 500-125 MG TAB PO ONE (12:00)
[2016-10-28] MEDS: ACETAMINOPHEN 325 MG TABLET PO PRN (17:22)
[2016-10-28] MEDS: INSULIN GLARGINE,HUM.REC.ANLOG 1,000 UNIT/10 ML UNIT SUBCUT SCH (21:35)
[2016-10-28] MEDS: AMOXICILLIN TR/POT CLAVULANATE 500-125 MG TAB PO SCH (21:35)
[2016-10-29] MEDS: AMOXICILLIN TR/POT CLAVULANATE 500-125 MG TAB PO SCH ×3 (05:52→21:35)
[2016-10-29] MEDS: LANSOPRAZOLE 30 MG TAB.RAP.DR PO SCH ×2 (05:52→17:34)
[2016-10-29] MEDS: INSULIN LISPRO 100 UNIT/ML 3 ML VIAL SUBCUT SCH ×3 (07:55→17:35)
[2016-10-29] MEDS: INSULIN LISPRO 100 UNIT/ML 3 ML VIAL SUBCUT PRN ×4 (07:56→22:08)
[2016-10-29] MEDS: IPRATROPIUM/ALBUTEROL 0.5-2.5 MG/3 ML AMPUL NEB SCH ×2 (08:11→13:58)
--- NOTE | 2016-10-29 09:30 | PDOC PROGRESS REPORT ---
Subjective Progress Note for:: 10/29/16 Subjective:: Patient reports generalized fatigue otherwise no temperature spikes, no nausea or vomiting, no chest pain, no diarrhea, no worsening shortness of breath. Wheezing has been intermittent. Patient reports wheezing even at baseline. He reports not being back to his baseline symptoms yet at this point Patient reports he is homeless. Feels generally weak. Physical Exam Vital Signs: Temp Pulse Resp BP Pulse Ox 97.3 F 99 16 110/85 98 10/29/16 07:43 10/29/16 08:11 10/29/16 08:11 10/29/16 07:43 10/29/16 08:11 Intake & Output 10/28/16 10/29/16 10/30/16 06:59 06:59 06:59 Intake Total 3790 2787 Output Total 2125 3600 Balance 1665 -813 Weight 101.8 kg 100.9 kg General appearance: PRESENT: no acute distress, morbidly obese Head exam: PRESENT: normocephalic Eye exam: PRESENT: EOMI Mouth exam: PRESENT: moist, neck supple Neck exam: ABSENT: JVD Respiratory exam: PRESENT: unlabored, wheezes - Mild bilateral Cardiovascular exam: PRESENT: RRR. ABSENT: gallop GI/Abdominal exam: PRESENT: hypoactive bowel sounds, soft. ABSENT: distended - Obese, tenderness Extremities exam: PRESENT: +1 edema Neurological exam: PRESENT: alert, awake, oriented to situation Skin exam: PRESENT: dry, warm. ABSENT: cyanosis Results Laboratory Results: 10/28/16 06:40 10/28/16 06:40 10/26/16 09:10 Clean Catch Midstream Urine Culture - Final NO GROWTH 2 DAYS Impressions: Chest X-Ray 10/25/16 02:23 IMPRESSION: LEFT UPPER LOBE DENSITY SECONDARY TO KNOWN MASS. NO ACUTE FINDINGS. Assessment & Plan - Diagnosis (1) COPD exacerbation Is this a current diagnosis for this admission?: Yes (2) Mass of left lung Is this a current diagnosis for this admission?: Yes (3) Seizure Is this a current diagnosis for this admission?: Yes (4) Type 2 diabetes mellitus with hyperglycemia Qualifiers: Diabetes mellitus ferry terminal supervisor insulin use: without alf use Qualified Code(s): E11.65 - Type 2 diabetes mellitus with hyperglycemia Is this a current diagnosis for this admission?: Yes (5) Hypertension Qualifiers: Hypertension type: essential hypertension Qualified Code(s): I10 - Essential (primary) hypertension Is this a current diagnosis for this admission?: Yes (6) GERD (gastroesophageal reflux disease) Qualifiers: Esophagitis presence: without esophagitis Qualified Code(s): K21.9 - Gastro-esophageal reflux disease without esophagitis Is this a current diagnosis for this admission?: Yes (7) History of stroke Is this a current diagnosis for this admission?: Yes (8) Depression Qualifiers: Depression Type: unspecified Qualified Code(s): F32.9 - Major depressive disorder, single episode, unspecified Is this a current diagnosis for this admission?: Yes (9) Osteoarthritis Qualifiers: Osteoarthritis location: unspecified site Osteoarthritis type: unspecified Qualified Code(s): M19.90 - Unspecified osteoarthritis, unspecified site Is this a current diagnosis for this admission?: Yes - Time Time Spent with patient: 25-34 minutes - Plan Summary Plan Summary: We will try him on diuretics. Continue steroids, bronchodilators, antibiotics. Stop intravenous fluids. Continue physical therapy. Consult land planner for long-term care.
[2016-10-29] MEDS: PREDNISONE 20 MG TABLET PO SCH (10:15)
[2016-10-29] MEDS: ENOXAPARIN SODIUM INJ 40 MG/0.4 ML DISP.SYRIN SUBCUT SCH (10:15)
[2016-10-29] MEDS ORDERED: FUROSEMIDE INJ/PF 40 MG/4 ML SDV IV ONE (11:30)
[2016-10-29] MEDS ORDERED: ADENOSINE INJ/PF 6 MG/2 ML SDV IV ONE ×2 (18:16→19:30)
[2016-10-29] MEDS ORDERED: DILTIAZEM HCL/D5W 125 MG/125 ML RTUINJ IV ONE (18:23)
[2016-10-29] MEDS ORDERED: DILTIAZEM HCL INJ 25 MG/5 ML VIAL ONE ×2 (18:23→19:17)
[2016-10-29] MEDS: DILTIAZEM HCL/D5W 125 MG/125 ML RTUINJ IV PRN (18:25)
[2016-10-29] MEDS ORDERED: LEVALBUTEROL HCL NEB 1.25 MG/3 ML AMPUL NEB PRN (18:31)
[2016-10-29] MEDS ORDERED: DILTIAZEM HCL/D5W 125 MG/125 ML RTUINJ IV PRN (19:16)
--- NOTE | 2016-10-29 19:25 | PDOC CONSULTATION ---
Consultation Consult Date: 10/29/16 Attending physician:: STEPHEN SOTO Consult reason:: Dyspnea History of Present Illness Admission Date/PCP: 10/25/16 07:49 Patient complains of: Shortness of breath History of Present Illness: IVELISSE RITTER is a 66 year old male, with underlying COPD, 2-1/2-3 pack per day smoker, who presents to the emergency room for evaluation of a 2 to three-day history of slowly progressive worsening shortness of breath, in particular with much of any exertion or continued smoking. Dry cough. Little relief with his albuterol inhaler at home. Similar symptoms in past with COPD exacerbation. Denies fever chills, nausea vomiting, diarrhea or dysuria. No chest pain. Patient still experiencing a fair amount of wheezing despite multiple treatments given in the emergency room so far. Patient has been discussed with emergency room physician who evaluated the patient. Today while being monitored, the Patient was noted to be in atrial flutter fibrillation with somewhat of a rapid ventricular response. This was confirmed by an EKG. I was asked to evaluate this patient. The patient denied any chest discomfort. He has noted some increased shortness of breath. Patient also expressed the wish to be a DO NOT RESUSCITATE. Nurse Becerra witnessed it. Past Medical History Cardiac Medical History: Reports: Hyperlipidema, Hypertension Denies: Congestive Heart Failure, DVT, Myocardial Infarction, Pulmonary Embolism Pulmonary Medical History: Reports: Bronchitis, Chronic Obstructive Pulmonary Disease (COPD), Tuberculosis - History of EENT Medical History: Reports: Eyes - Wears glasses Denies: Ears, Throat Neurological Medical History: Reports: Ischemic CVA - Multiple prior, Seizures - Multiple prior, typically accompanying his strokes. Denies: Hemorrhagic CVA Endocrine Medical History: Denies: Diabetes Mellitus Type 1, Diabetes Mellitus Type 2, Hyperthyroidism, Hypothyroidism Renal/ Medical History: Reports: None GI Medical History: Reports: Gastroesophageal Reflux Disease, Peptic Ulcer Disease - Quite distant history Denies: Cirrhosis, Hepatitis Musculoskeltal Medical History: Reports: Arthritis Skin Medical History: Reports: Other - Occasional forearm rash. Psychiatric Medical History: Reports: Alcohol Dependency - History of same; no alcohol use for approximately one year, according to patient., Depression, General Anxiety Disorder, Tobacco Dependency Denies: Substance Abuse Hematology: Denies: Anemia Infectious Medical History: Denies: Hepatitis B, Hepatitis C Past Surgical History Past Surgical History: Reports: Cholecystectomy Social History Information Source: Patient Lives with: [facility] Smoking Status: Current Every Day Smoker Cigarettes Packs Per Day: 3 Number of Years Smokin Last Time Smoked: 10/24/2016 Frequency of Alcohol Use: None Hx Recreational Drug Use: No Drugs: None Hx Prescription Drug Abuse: No - Advance Directive Resuscitation Status: Do Not Resuscitate Family History Family History: Reviewed & Not Pertinent Parental Family History Reviewed: Yes Children Family History Reviewed: Yes Sibling(s) Family History Reviewed.: Yes Medication/Allergy Home Medications: Albuterol Sulfate [Ventolin Hfa 8 gm Mdi (1 Mdi/ER Disp)] 2 puff PO Q4HP PRN Aspirin [Aspirin 81 mg Chewable Tablet] 81 mg PO DAILY 10/25/16 Atorvastatin Calcium [Lipitor 80 mg Tablet] 80 mg PO QAM 10/25/16 Fluoxetine HCl [Prozac] 40 mg PO DAILY 10/25/16 Lisinopril [Prinivil] 20 mg PO DAILY 10/25/16 Metformin HCl 500 mg PO QPM 10/25/16 Allergies/Adverse Reactions: naproxen Allergy (Verified 10/25/16 01:31) Review of Systems Review of Systems: Please see history of present illness and past medical history as wall. Constitutional: No fever or chills reported. Head : No recent chronic headaches, recent head injury. Eyes: No recent eye pain, diplopia, redness, discharge, acute visual changes. Ears: No recent chronic ear pain, acute hearing loss, ear discharge. Oral cavity: No recent ulcerations, bleeding, oral cavity discomfort. Neck: No recent acute neck pain reported. Hematologic: No recent easy bruising or bleeding or hematologic malignancy reported. Lymphatic: No recent lymphatic malignancy, chronic lymphadenopathy reported yet Cardiovascular system review: See history of present illness. Respiratory system review: Recent cough and wheezing. But no Hemoptysis, blood clots in the lungs reported. Moderate Shortness of breath on exertion Gastrointestinal system review: Negative for any recent acute or chronic abdominal pain, hematemesis, melena, recent change in bowel habits. Genitourinary system review: No recent acute or chronic hematuria, flank pain, UTI etc. reported. Skin system review: Negative for any recent abnormal bruising, no rash, no pruritus reported. Neurologic: No prior history of strokes, mini strokes, seizure disorder. Psychologic: No history of major psychosis or major depression reported. Musculoskeletal: Minor aches and pains reported. No acute joint swelling reported. Endocrine: No recent polyuria, polydipsia, recent heat or cold intolerance. Physical Exam Vital Signs: Temp Pulse Resp BP Pulse Ox 98.1 F 110 H 16 128/66 H 95 10/29/16 15:30 10/29/16 15:30 10/29/16 15:30 10/29/16 18:37 10/29/16 15:30 Intake & Output 10/28/16 10/29/16 10/30/16 06:59 06:59 06:59 Intake Total 3790 2787 825 Output Total 2125 3600 1350 Balance 4365 -454 -342 Weight 101.8 kg 100.9 kg Exam: GENERAL: well-nourished and in no acute distress. Alert and oriented x3 HEAD: Atraumatic, normocephalic. EYES: Pupils equal round and reactive to light, extraocular movements intact, sclera anicteric, conjunctiva are normal. Patient is legally blind. ENT: TMs normal, nares patent, oropharynx clear without exudates. Moist mucous membranes. No oral ulcerations or bleeding gums noted NECK: supple without lymphadenopathy. Trachea is central. No cervical or axillary lymphadenopathy noted. Carotids are 2+, JVD WNL LUNGS: Respiration seems nonlabored, no significant accessory muscle action noted. Bilateral wheezes rales or rhonchi noted. No significant dullness noted on percussion. CHEST: Palpation of the chest wall shows no significant chest wall tenderness. No other significant abnormalities noted. 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 ABDOMEN: Soft, no significant tenderness appreciated, normoactive bowel sounds. No guarding, no rebound. No rigidity noted . No masses appreciated. EXTREMITIES: Pedal pulses are 1-2+, no calf tenderness noted. No clubbing or cyanosis.trace to 1+ pedal edema noted NEUROLOGICAL: Focused neurological exam showed no significant neurologic deficit. Normal speech, no focal weakness appreciated. PSYCH: Normal mood, normal affect. Judgment and insight within normal limits. SKIN: No significant ecchymosis, rash, ulcerations or signs of pruritus noted. MUSCULOSKELETAL EXAM: No significant joint swelling noted. Results Laboratory Results: 10/28/16 06:40 10/28/16 06:40 EKG Comments: Atrial flutter fibrillation with rapid ventricular response. No acute ST-T wave changes noted. Impressions: Chest X-Ray 10/25/16 02:23 IMPRESSION: LEFT UPPER LOBE DENSITY SECONDARY TO KNOWN MASS. NO ACUTE FINDINGS. Assessment & Plan - Diagnosis (1) Atrial fibrillation with RVR Is this a current diagnosis for this admission?: YesPlan: Patient noted to go into atrial flutter fibrillation with rapid ventricular response. This could be related to COPD exacerbation. Agree with Cardizem drip. Have given additional 10 mg of Cardizem and increase the drip to 10 mg per hour. Will also start patient on Multaq. Do not see a relative contraindication at this point. Make sure the electrolytes are within normal limits. A 2-D echo has been ordered. (2) COPD exacerbation Is this a current diagnosis for this admission?: YesPlan: Agree with current management plans. Consider switch to Xopenex. (3) Hypertension Qualifiers: Hypertension type: essential hypertension Qualified Code(s): I10 - Essential (primary) hypertension Is this a current diagnosis for this admission?: YesPlan: Currently blood pressure relatively well controlled. Continue with current management plans (4) Mass of left lung Is this a current diagnosis for this admission?: YesPlan: Currently stable. Patient may benefit from oncology follow-up. (5) Tobacco dependency Is this a current diagnosis for this admission?: YesPlan: Patient advised on tobacco cessation. - Notes Notes: CODE STATUS was discussed, patient wishes to be DO NOT RESUSCITATE. He did not assign a surrogate decision-maker. Multiple medical problems were addressed. - Time Time Spent: 50 to 70 Minutes - More than 50% of the time spent coordinating care , discussing management plans with involved caregivers. Management plans discussed with involved personnels. Medical decision making was of moderate complexity. Medications reviewed and adjusted accordingly: Yes
[2016-10-29] MEDS ORDERED: DILTIAZEM HCL INJ 25 MG/5 ML VIAL IV ONE ×2 (19:30→19:45)
[2016-10-29] MEDS ORDERED: DRONEDARONE HYDROCHLORIDE 400 MG TABLET PO SCH (20:00)
[2016-10-29] MEDS: IPRATROPIUM BROMIDE 0.02% NEB 0.5 MG/2.5 ML AMPUL NEB SCH (20:07)
[2016-10-29] MEDS: LEVALBUTEROL HCL NEB 1.25 MG/3 ML AMPUL NEB SCH (20:07)
[2016-10-29] MEDS: FUROSEMIDE INJ/PF 40 MG/4 ML SDV IV SCH (21:35)
[2016-10-29] MEDS ORDERED: APIXABAN 5 MG TABLET PO SCH (22:00)
[2016-10-29] MEDS ORDERED: DRONEDARONE HYDROCHLORIDE 400 MG TABLET PO ONE (22:00)
[2016-10-29] MEDS: APIXABAN 5 MG TABLET PO SCH (22:07)
[2016-10-29] MEDS: INSULIN GLARGINE,HUM.REC.ANLOG 1,000 UNIT/10 ML UNIT SUBCUT SCH (22:09)
[2016-10-30] MEDS: IPRATROPIUM BROMIDE 0.02% NEB 0.5 MG/2.5 ML AMPUL NEB SCH ×4 (02:11→20:58)
[2016-10-30] MEDS: LEVALBUTEROL HCL NEB 1.25 MG/3 ML AMPUL NEB SCH ×4 (02:11→20:58)
[2016-10-30] MEDS: DILTIAZEM HCL/D5W 125 MG/125 ML RTUINJ IV PRN ×2 (03:12→14:26)
[2016-10-30] MEDS: LANSOPRAZOLE 30 MG TAB.RAP.DR PO SCH ×2 (05:48→16:34)
[2016-10-30] MEDS: AMOXICILLIN TR/POT CLAVULANATE 500-125 MG TAB PO SCH ×3 (05:48→21:24)
[2016-10-30] MEDS ORDERED: DRONEDARONE HYDROCHLORIDE 400 MG TABLET PO SCH (08:00)
--- NOTE | 2016-10-30 08:05 | EKG REPORT ---
SEVERITY:- ABNORMAL ECG - ATRIAL FIBRILLATION-FLUTTER NONSPECIFIC INTRAVENTRICULAR CONDUCTION DELAY ST DEPRESSION, CONSIDER ISCHEMIA, INF LEADS : Confirmed by: Hermann Nieto MD 30-Oct-2016 08:04:14
[2016-10-30] MEDS: INSULIN LISPRO 100 UNIT/ML 3 ML VIAL SUBCUT PRN ×3 (08:26→22:57)
[2016-10-30] MEDS: INSULIN LISPRO 100 UNIT/ML 3 ML VIAL SUBCUT SCH ×3 (08:27→16:34)
[2016-10-30] MEDS ORDERED: DRONEDARONE HYDROCHLORIDE 400 MG TABLET PO ONE (10:00)
[2016-10-30] MEDS: PREDNISONE 20 MG TABLET PO SCH (10:39)
[2016-10-30] MEDS: FUROSEMIDE INJ/PF 40 MG/4 ML SDV IV SCH ×2 (10:39→21:24)
[2016-10-30] MEDS: APIXABAN 5 MG TABLET PO SCH ×2 (10:40→21:24)
--- NOTE | 2016-10-30 12:57 | XCELERA REPORT ---
[address] [address] Transthoracic Echocardiogram Report Name: IVELISSE RITTER SR Age: 66 yrs Gender: Male : 1950 Patient Status: Inpatient Patient Location: [id number]\S\313\S\A Study Date: 10/30/2016 08:57 AM Height: 65 in Weight: 222 lb BSA: 2.1 m2 Procedure: A complete two-dimensional transthoracic echocardiogram was performed (2D, M-mode, spectral and color flow Doppler). The study was technically difficult with many images being suboptimal in quality. Reason For Study: afib Ordering Physician: STEPHEN SOTO Performed By: Anthony Whitney Interpretation Summary LV diastolic function could not be adequately assessed due to atrial fibrilation. The left ventricular ejection fraction is within normal limits. There is mild concentric left ventricular hypertrophy. The left ventricle is grossly normal size. Wall motion cannot be accurately commented on, but no definite regional wall motion abnormalities noted. Borderline right ventricular enlargement. The right ventricular systolic function is normal. The left atrial size is normal. The right atrium is mildly dilated. There is a mild amount of mitral regurgitation There is no mitral valve stenosis. There is no aortic valve stenosis No aortic regurgitation is present. There is a trace or physiologic amount of tricuspid regurgitation Tricuspid regurgitation jet envelope not well defined to measure RV systolic pressure accurately. The aortic root is not well visualized. The inferior vena cava was not visualized Minimal pericardial effusion. MMode/2D Measurements \T\ Calculations RVDd: 1.8 cm LVIDd: 4.1 cm FS: 22.3 % Ao root diam: 2.7 cm IVSd: 1.1 cm LVIDs: 3.2 cm EDV(Teich): 76.1 ml LVPWd: 1.1 cm ESV(Teich): 41.6 ml Ao root area: 5.7 cm2 EF(Teich): 45.3 % LA dimension: 3.5 cm Doppler Measurements \T\ Calculations MV E max prabhjot: MV P1/2t max prabhjot: Ao V2 max: LV V1 max P.8 cm/sec 88.8 cm/sec 146.6 cm/sec 4.4 mmHg MV P1/2t: 52.3 msec Ao max PG: LV V1 max: 8.6 mmHg 104.4 cm/sec MVA(P1/2t): 4.2 cm2 MV dec slope: 496.8 cm/sec2 MV dec time: 0.19 sec PA V2 max: TR max prabhjot: RAP systole: 85.5 cm/sec 207.9 cm/sec 10.0 mmHg PA max PG: TR max P.3 mmHg 2.9 mmHg RVSP(TR): 27.3 mmHg Left Ventricle The left ventricle is grossly normal size. There is mild concentric left ventricular hypertrophy. The left ventricular ejection fraction is within normal limits. LV diastolic function could not be adequately assessed due to atrial fibrilation. Wall motion cannot be accurately commented on, but no definite regional wall motion abnormalities noted. Right Ventricle Borderline right ventricular enlargement. There is normal right ventricular wall thickness. The right ventricular systolic function is normal. Atria The right atrium is mildly dilated. The left atrial size is normal. Interarterial septum not well visualized and not well dopplered. Cannot comment on ASD/PFO presence. Mitral Valve The mitral valve leaflets appear thickened, but open well. There is mild mitral annular calcification. There is no mitral valve stenosis. There is a mild amount of mitral regurgitation. Aortic Valve The aortic valve is not well visualized secondary to technical limitations. There is no aortic valve stenosis. No aortic regurgitation is present. Tricuspid Valve The tricuspid valve is not well visualized secondary to technical limitations. There is no tricuspid stenosis. There is a trace or physiologic amount of tricuspid regurgitation. Tricuspid regurgitation jet envelope not well defined to measure RV systolic pressure accurately. Pulmonic Valve The pulmonic valve is not well visualized. Great Vessels The aortic root is not well visualized. The inferior vena cava was not visualized. Effusions Minimal pericardial effusion. : STEPHEN SOTO Shyamal
[2016-10-30] MEDS: DILTIAZEM HCL 60 MG TABLET PO SCH ×2 (14:18→21:24)
--- NOTE | 2016-10-30 15:38 | PDOC PROGRESS REPORT ---
Subjective Progress Note for:: 10/30/16 Subjective:: Patient developed atrial flutter fibrillation yesterday afternoon noted after a dose of adenosine was given during the SVT episodes. Patient started on Cardizem drip. Cardiology was consulted. Patient was placed on anticoagulation with eliquis. The patient was not having chest pain, no dizziness, nor any discomfort during the episode. Blood pressure has been normal. Cardiology started the patient on multaq. Heart rate got better controlled this morning. Patient continues to deny any specific complaints. Physical Exam Vital Signs: Temp Pulse Resp BP Pulse Ox 97.4 F 95 16 130/95 H 94 10/30/16 12:13 10/30/16 15:00 10/30/16 13:11 10/30/16 15:00 10/30/16 13:11 Intake & Output 10/29/16 10/30/16 10/31/16 06:59 06:59 06:59 Intake Total 2787 1460 750 Output Total 3600 2300 1000 Balance -813 -840 -250 Weight 100.9 kg 99.8 kg General appearance: PRESENT: no acute distress, cooperative, morbidly obese Head exam: PRESENT: normocephalic Eye exam: PRESENT: conjunctiva pink, EOMI Mouth exam: PRESENT: moist, neck supple Neck exam: ABSENT: JVD Respiratory exam: PRESENT: decreased breath sounds - Bilateral, wheezes - Significantly improved. ABSENT: rhonchi Cardiovascular exam: PRESENT: irregular rhythm. ABSENT: gallop GI/Abdominal exam: PRESENT: hypoactive bowel sounds, soft. ABSENT: distended - Obese, tenderness Extremities exam: PRESENT: other - Trace lower extremity edema Neurological exam: PRESENT: alert, awake, oriented to situation Skin exam: PRESENT: dry, warm. ABSENT: cyanosis Results Laboratory Results: 10/28/16 06:40 10/28/16 06:40 10/25/16 13:34 Blood Blood Culture - Final NO GROWTH IN 5 DAYS 10/25/16 11:50 Blood Blood Culture - Final NO GROWTH IN 5 DAYS Impressions: Chest X-Ray 10/25/16 02:23 IMPRESSION: LEFT UPPER LOBE DENSITY SECONDARY TO KNOWN MASS. NO ACUTE FINDINGS. Assessment & Plan - Diagnosis (1) COPD exacerbation Is this a current diagnosis for this admission?: Yes (2) Mass of left lung Is this a current diagnosis for this admission?: Yes (3) Seizure Is this a current diagnosis for this admission?: Yes (4) Type 2 diabetes mellitus with hyperglycemia Qualifiers: Diabetes mellitus care home insulin use: without care home use Qualified Code(s): E11.65 - Type 2 diabetes mellitus with hyperglycemia Is this a current diagnosis for this admission?: Yes (5) Hypertension Qualifiers: Hypertension type: essential hypertension Qualified Code(s): I10 - Essential (primary) hypertension Is this a current diagnosis for this admission?: Yes (6) GERD (gastroesophageal reflux disease) Qualifiers: Esophagitis presence: without esophagitis Qualified Code(s): K21.9 - Gastro-esophageal reflux disease without esophagitis Is this a current diagnosis for this admission?: Yes (7) History of stroke Is this a current diagnosis for this admission?: Yes (8) Depression Qualifiers: Depression Type: unspecified Qualified Code(s): F32.9 - Major depressive disorder, single episode, unspecified Is this a current diagnosis for this admission?: Yes (9) Osteoarthritis Qualifiers: Osteoarthritis location: unspecified site Osteoarthritis type: unspecified Qualified Code(s): M19.90 - Unspecified osteoarthritis, unspecified site Is this a current diagnosis for this admission?: Yes - Time Time Spent with patient: 25-34 minutes - Plan Summary Plan Summary: We are going to give her oral Cardizem and continued the multaq and anticoagulation. We will wean intravenous Cardizem. Patient does not remember where he lives but he is actually a resident of a local [facility] home known as [facility]. Continue other medications. Patient has been on DVT prophylaxis before the episode happened. Currently he is fully anticoagulated now. We'll continue to monitor. In terms of his Lung mass, he refused workup with Dr. Nava while in the hospital. However he seems to be open and agreeable for outpatient workup and follow-up of his lung mass.
[2016-10-30] MEDS: DRONEDARONE HYDROCHLORIDE 400 MG TABLET PO SCH (16:34)
--- NOTE | 2016-10-30 20:27 | PDOC PROGRESS REPORT ---
Subjective Progress Note for:: 10/30/16 Subjective:: Patient seems to be doing better with gradual improvement. Pt is denying any chest arm or neck discomfort. Patient denying any PND, orthopnea. Patient denied any sustained palpitations, dizziness, syncope, near syncope. Patient denying any fever chills. Patient denying any other significant discomfort. Patient is maintaining atrial flutter fibrillation. Heart rate relatively well controlled. Review of systems: Rest review of systems negative. Medications: Medications have been reviewed. Physical Exam Vital Signs: Temp Pulse Resp BP Pulse Ox 98.2 F 111 H 18 115/56 L 96 10/30/16 15:48 10/30/16 19:00 10/30/16 15:48 10/30/16 16:23 10/30/16 15:48 Intake & Output 10/29/16 10/30/16 10/31/16 06:59 06:59 06:59 Intake Total 2787 1460 1510 Output Total 3600 2300 2200 Balance -813 -840 -690 Weight 100.9 kg 99.8 kg 99.8 kg Exam: GENERAL: well-nourished and in no acute distress. Alert and oriented x3 HEAD: Atraumatic, normocephalic. EYES: Pupils equal round and reactive to light, extraocular movements intact, sclera anicteric, conjunctiva are normal. Patient is legally blind. ENT: TMs normal, nares patent, oropharynx clear without exudates. Moist mucous membranes. No oral ulcerations or bleeding gums noted NECK: supple without lymphadenopathy. Trachea is central. No cervical or axillary lymphadenopathy noted. Carotids are 2+, JVD WNL LUNGS: Respiration seems nonlabored, no significant accessory muscle action noted. Breath sounds clear to auscultation bilaterally and equal noted. No wheezes rales or rhonchi noted. No significant dullness noted on percussion. CHEST: Palpation of the chest wall shows no significant chest wall tenderness. No other significant abnormalities noted. 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 ABDOMEN: Soft, no significant tenderness appreciated, normoactive bowel sounds. No guarding, no rebound. No rigidity noted . No masses appreciated. EXTREMITIES: Pedal pulses are 1-2+, no calf tenderness noted. No clubbing or cyanosis.trace to 1+ pedal edema noted NEUROLOGICAL: Focused neurological exam showed no significant neurologic deficit. Normal speech, no focal weakness appreciated. PSYCH: Normal mood, normal affect. Judgment and insight within normal limits. SKIN: No significant ecchymosis, rash, ulcerations or signs of pruritus noted. MUSCULOSKELETAL EXAM: No significant joint swelling noted. Results Laboratory Results: 10/28/16 06:40 10/28/16 06:40 10/25/16 13:34 Blood Blood Culture - Final NO GROWTH IN 5 DAYS 10/25/16 11:50 Blood Blood Culture - Final NO GROWTH IN 5 DAYS Impressions: Chest X-Ray 10/25/16 02:23 IMPRESSION: LEFT UPPER LOBE DENSITY SECONDARY TO KNOWN MASS. NO ACUTE FINDINGS. Chest/Abdomen CTA 10/30/16 00:00 IMPRESSION: NO PULMONARY EMBOLI. STABLE TO MINIMAL ENLARGEMENT LEFT UPPER LOBE MASS WHICH REMAINS CONCERNING FOR PRIMARY LUNG NEOPLASM. CORRELATE WITH ANY BRONCHOSCOPY OR BIOPSY RESULTS. Assessment & Plan - Diagnosis (1) Atrial fibrillation with RVR Is this a current diagnosis for this admission?: Yes (2) COPD exacerbation Is this a current diagnosis for this admission?: Yes (3) Hypertension Qualifiers: Hypertension type: essential hypertension Qualified Code(s): I10 - Essential (primary) hypertension Is this a current diagnosis for this admission?: Yes (4) Mass of left lung Is this a current diagnosis for this admission?: Yes (5) Tobacco dependency Is this a current diagnosis for this admission?: Yes (6) Dyspnea Qualifiers: Dyspnea type: dyspnea on exertion Qualified Code(s): R06.09 - Other forms of dyspnea Is this a current diagnosis for this admission?: Yes - Notes Notes: Atrial fibrillation: Currently persistent. Patient was placed on Multaq. Recommend chronic anticoagulation. If Multaq is ineffective, could discontinue with. For rate control recommend Cardizem and beta leodan etc. repeat EKG in the morning. COPD with exacerbation: Continue current management plan. Hypertension: Currently stable. Mass left lung: Possible malignancy. Tobacco dependency: advised to stop smoking. Dyspnea: Possibly related to underlying COPD, COPD exacerbation. Patient however feels better with IV Lasix. May have element of diastolic heart failure. We'll check a BNP level. 2-D echo results reviewed. - Time Time with patient: 15-25 minutes - CODE STATUS was discussed, patient remains full code. Surrogate decision-maker unchanged. Multiple medical problems were addressed.More than 50% of the time spent coordinating care, discussing management plans with involved caregivers. Management plans discussed with involved personnels. Medical decision making was of moderate complexity.
[2016-10-30] MEDS: INSULIN GLARGINE,HUM.REC.ANLOG 1,000 UNIT/10 ML UNIT SUBCUT SCH (22:53)
[2016-10-31] MEDS: IPRATROPIUM BROMIDE 0.02% NEB 0.5 MG/2.5 ML AMPUL NEB SCH ×4 (01:57→19:57)
[2016-10-31] MEDS: LEVALBUTEROL HCL NEB 1.25 MG/3 ML AMPUL NEB SCH ×4 (01:57→19:57)
[2016-10-31] MEDS: DILTIAZEM HCL 60 MG TABLET PO SCH ×4 (03:02→21:20)
[2016-10-31] MEDS: LANSOPRAZOLE 30 MG TAB.RAP.DR PO SCH ×2 (05:18→17:28)
[2016-10-31] MEDS: AMOXICILLIN TR/POT CLAVULANATE 500-125 MG TAB PO SCH ×3 (05:18→22:58)
[2016-10-31 06:06] LABS: HEMATOCRIT 45.1 % (37.9-51.0); HEMOGLOBIN 15.5 g/dL (13.5-17.0); HGB HCT DIFFERENCE 1.4; MEAN CORPUSCULAR HEMOGLOBIN 30.3 pg (27.0-33.4); MEAN CORPUSCULAR HGB CONC 34.4 g/dL (32.0-36.0); MEAN CORPUSCULAR VOLUME 88 fl (80-97); RED BLOOD COUNT 5.13 10^6/uL (4.35-5.55); RED CELL DISTRIBUTION WIDTH 13.2 % (11.5-14.0); WHITE BLOOD COUNT 16.7 10^3/uL (4.0-10.5)
[2016-10-31 06:27] LABS: ANION GAP 15 (5-19); BLOOD UREA NITROGEN 35 mg/dL (7-20); CALCIUM 9.9 mg/dL (8.4-10.2); CARBON DIOXIDE 31 mmol/L (22-30); CHLORIDE 93 mmol/L (98-107); CREATININE RESULT 0.86 mg/dL (0.52-1.25); GLUCOSE 218 mg/dL (75-110); MAGNESIUM 2.5 mg/dL (1.6-2.3); POTASSIUM 4.2 mmol/L (3.6-5.0); SODIUM 138.7 mmol/L (137-145)
--- NOTE | 2016-10-31 07:57 | EKG REPORT ---
SEVERITY:- ABNORMAL ECG - SINUS RHYTHM MULTIPLE ATRIAL PREMATURE COMPLEXES BORDERLINE T ABNORMALITIES, ANT-LAT LEADS : Confirmed by: Hermann Nieto MD 31-Oct-2016 07:57:09
[2016-10-31] MEDS: PREDNISONE 20 MG TABLET PO SCH (09:59)
[2016-10-31] MEDS: INSULIN LISPRO 100 UNIT/ML 3 ML VIAL SUBCUT PRN ×4 (09:59→23:48)
[2016-10-31] MEDS: APIXABAN 5 MG TABLET PO SCH ×2 (09:59→22:59)
[2016-10-31] MEDS: INSULIN LISPRO 100 UNIT/ML 3 ML VIAL SUBCUT SCH ×3 (09:59→17:27)
[2016-10-31] MEDS: DRONEDARONE HYDROCHLORIDE 400 MG TABLET PO SCH ×2 (10:00→17:27)
[2016-10-31] MEDS: FUROSEMIDE INJ/PF 40 MG/4 ML SDV IV SCH (10:00)
--- NOTE | 2016-10-31 15:53 | PDOC PROGRESS REPORT ---
Subjective Progress Note for:: 10/31/16 Subjective:: Patient reports that his breathing is doing somewhat better. Physical Exam Vital Signs: Temp Pulse Resp BP Pulse Ox 98.4 F 82 22 H 104/42 L 91 L 10/31/16 15:24 10/31/16 15:24 10/31/16 15:24 10/31/16 15:24 10/31/16 15:24 Intake & Output 10/30/16 10/31/16 11/01/16 06:59 06:59 06:59 Intake Total 1460 2020 Output Total 2300 2950 Balance -840 -930 Weight 99.8 kg 98.3 kg General appearance: PRESENT: no acute distress Eye exam: PRESENT: conjunctiva pink. ABSENT: scleral icterus Mouth exam: PRESENT: moist, tongue midline Neck exam: ABSENT: JVD Respiratory exam: PRESENT: clear to auscultation danni. ABSENT: rales, rhonchi, wheezes Cardiovascular exam: PRESENT: RRR. ABSENT: diastolic murmur, rubs, systolic murmur GI/Abdominal exam: PRESENT: normal bowel sounds, soft. ABSENT: distended, guarding, mass, organolmegaly, rebound, tenderness Extremities exam: ABSENT: calf tenderness, clubbing, pedal edema Neurological exam: PRESENT: alert, awake, oriented to person, oriented to place , oriented to time Psychiatric exam: PRESENT: appropriate affect Skin exam: PRESENT: dry, intact, warm. ABSENT: cyanosis, rash Results Laboratory Results: 10/31/16 05:18 10/31/16 05:18 10/31/16 10/31/16 05:18 05:18 WBC 16.7 H RBC 5.13 Hgb 15.5 Hct 45.1 MCV 88 MCH 30.3 MCHC 34.4 RDW 13.2 Plt Count 274 Sodium 138.7 Potassium 4.2 Chloride 93 L Carbon Dioxide 31 H Anion Gap 15 BUN 35 H Creatinine 0.86 Est GFR ( Amer) > 60 Est GFR (Non-Af Amer) > 60 Glucose 218 H Calcium 9.9 Magnesium 2.5 H 10/25/16 13:34 Blood Blood Culture - Final NO GROWTH IN 5 DAYS 10/25/16 11:50 Blood Blood Culture - Final NO GROWTH IN 5 DAYS 10/31/16 05:18 NT-Pro-B Natriuret Pep 304 Impressions: Chest X-Ray 10/25/16 02:23 IMPRESSION: LEFT UPPER LOBE DENSITY SECONDARY TO KNOWN MASS. NO ACUTE FINDINGS. Chest/Abdomen CTA 10/30/16 00:00 IMPRESSION: NO PULMONARY EMBOLI. STABLE TO MINIMAL ENLARGEMENT LEFT UPPER LOBE MASS WHICH REMAINS CONCERNING FOR PRIMARY LUNG NEOPLASM. CORRELATE WITH ANY BRONCHOSCOPY OR BIOPSY RESULTS. Assessment & Plan - Diagnosis (1) COPD exacerbation Is this a current diagnosis for this admission?: YesPlan: Patient continues to improve. We'll continue with the prednisone and Augmentin. (2) Mass of left lung Is this a current diagnosis for this admission?: YesPlan: The CT of the chest shows no real change in size of this lesion. (3) Atrial fibrillation with RVR Is this a current diagnosis for this admission?: YesPlan: Patient is currently in a normal sinus rhythm. The patient is being followed by cardiology. (4) GERD (gastroesophageal reflux disease) Qualifiers: Esophagitis presence: without esophagitis Qualified Code(s): K21.9 - Gastro-esophageal reflux disease without esophagitis Is this a current diagnosis for this admission?: YesPlan: Asymptomatic (5) Hyperkalemia Is this a current diagnosis for this admission?: YesPlan: Resolved (6) Hypertension Qualifiers: Hypertension type: essential hypertension Qualified Code(s): I10 - Essential (primary) hypertension Is this a current diagnosis for this admission?: YesPlan: Blood pressure is under good control. 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 (8) Hyperlipidemia Is this a current diagnosis for this admission?: Yes (9) Seizure Is this a current diagnosis for this admission?: Yes - Time Time Spent with patient: 25-34 minutes - Inpatient Certification Medical Necessity: Need Close Monitoring Due to Risk of Patient Decompensation
--- NOTE | 2016-10-31 18:35 | PDOC PROGRESS REPORT ---
Subjective Progress Note for:: 10/31/16 Subjective:: Patient seems to be doing better with gradual improvement. Pt is denying any chest arm or neck discomfort. Patient denying any PND, orthopnea. Patient denied any sustained palpitations, dizziness, syncope, near syncope. Patient denying any fever chills. Patient denying any other significant discomfort. Patient is maintaining sinus rhythm. He converted sometimes yesterday. Bases are noted. Review of systems: Rest review of systems negative. Medications: Medications have been reviewed. Physical Exam Vital Signs: Temp Pulse Resp BP Pulse Ox 98.4 F 82 22 H 104/42 L 91 L 10/31/16 15:24 10/31/16 15:24 10/31/16 15:24 10/31/16 15:24 10/31/16 15:24 Intake & Output 10/30/16 10/31/16 11/01/16 06:59 06:59 06:59 Intake Total 1460 2020 1188 Output Total 2300 2950 Balance -840 -930 1188 Weight 99.8 kg 98.3 kg Exam: GENERAL: well-nourished and in no acute distress. Alert and oriented x3 HEAD: Atraumatic, normocephalic. EYES: Pupils equal round and reactive to light, extraocular movements intact, sclera anicteric, conjunctiva are normal. ENT: TMs normal, nares patent, oropharynx clear without exudates. Moist mucous membranes. No oral ulcerations or bleeding gums noted NECK: supple without lymphadenopathy. Trachea is central. No cervical or axillary lymphadenopathy noted. Carotids are 2+, JVD WNL LUNGS: Respiration seems nonlabored, no significant accessory muscle action noted. Breath sounds clear to auscultation bilaterally and equal noted. No wheezes rales or rhonchi noted. No significant dullness noted on percussion. CHEST: Palpation of the chest wall shows no significant chest wall tenderness. No other significant abnormalities noted. HEART: [place] INTERNAL GRINDER, No PSH, 1/6 KRISTY aortic area, 1/6 sandy systolic murmur mitral area, no rubs, no gallops. ABDOMEN: Soft, no significant tenderness appreciated, normoactive bowel sounds. No guarding, no rebound. No rigidity noted . No masses appreciated. EXTREMITIES: Pedal pulses are 1-2+, no calf tenderness noted. No clubbing or cyanosis.trace to 1+ pedal edema noted NEUROLOGICAL: Focused neurological exam showed no significant neurologic deficit. Normal speech, no focal weakness appreciated. PSYCH: Normal mood, normal affect. Judgment and insight within normal limits. SKIN: No significant ecchymosis, rash, ulcerations or signs of pruritus noted. MUSCULOSKELETAL EXAM: No significant joint swelling noted. Results Laboratory Results: 10/31/16 05:18 10/31/16 05:18 10/31/16 10/31/16 05:18 05:18 WBC 16.7 H RBC 5.13 Hgb 15.5 Hct 45.1 MCV 88 MCH 30.3 MCHC 34.4 RDW 13.2 Plt Count 274 Sodium 138.7 Potassium 4.2 Chloride 93 L Carbon Dioxide 31 H Anion Gap 15 BUN 35 H Creatinine 0.86 Est GFR ( Amer) > 60 Est GFR (Non-Af Amer) > 60 Glucose 218 H Calcium 9.9 Magnesium 2.5 H 10/25/16 13:34 Blood Blood Culture - Final NO GROWTH IN 5 DAYS 10/31/16 05:18 NT-Pro-B Natriuret Pep 304 Impressions: Chest X-Ray 10/25/16 02:23 IMPRESSION: LEFT UPPER LOBE DENSITY SECONDARY TO KNOWN MASS. NO ACUTE FINDINGS. Chest/Abdomen CTA 10/30/16 00:00 IMPRESSION: NO PULMONARY EMBOLI. STABLE TO MINIMAL ENLARGEMENT LEFT UPPER LOBE MASS WHICH REMAINS CONCERNING FOR PRIMARY LUNG NEOPLASM. CORRELATE WITH ANY BRONCHOSCOPY OR BIOPSY RESULTS. Assessment & Plan - Diagnosis (1) Atrial fibrillation with RVR Is this a current diagnosis for this admission?: Yes (2) COPD exacerbation Is this a current diagnosis for this admission?: Yes (3) Hypertension Qualifiers: Hypertension type: essential hypertension Qualified Code(s): I10 - Essential (primary) hypertension Is this a current diagnosis for this admission?: Yes (4) Mass of left lung Is this a current diagnosis for this admission?: Yes (5) Tobacco dependency Is this a current diagnosis for this admission?: Yes (6) Dyspnea Qualifiers: Dyspnea type: dyspnea on exertion Qualified Code(s): R06.09 - Other forms of dyspnea Is this a current diagnosis for this admission?: Yes - Notes Notes: Atrial fibrillation: Now in sinus rhythm therefore paroxysmal. Patient tolerating Multaq. Recommend chronic anticoagulation. For rate control recommend Cardizem and beta leodan etc. continue Multaq at 400 by mouth twice a day. Maintain electrolytes within normal limit. Would recommend continuing Multaq for at least one month to erase any myocyte memory. COPD with exacerbation: Continue current management plan. Hypertension: Currently stable. Mass left lung: Possible malignancy. Tobacco dependency: advised to stop smoking. Dyspnea: Possibly related to underlying COPD, COPD exacerbation. 2-D echo shows diastolic dysfunction. BNP level WNL. Patient has been stable. Will sign off. Please reconsult if needed. - Time Time with patient: 15-25 minutes - CODE STATUS was discussed, patient remains full code. Surrogate decision-maker unchanged. Multiple medical problems were addressed.More than 50% of the time spent coordinating care, discussing management plans with involved caregivers. Management plans discussed with involved personnels. Medical decision making was of moderate complexity.
[2016-10-31] MEDS: INSULIN GLARGINE,HUM.REC.ANLOG 1,000 UNIT/10 ML UNIT SUBCUT SCH (22:58)
[2016-11-01] MEDS: IPRATROPIUM BROMIDE 0.02% NEB 0.5 MG/2.5 ML AMPUL NEB SCH ×4 (02:25→19:45)
[2016-11-01] MEDS: LEVALBUTEROL HCL NEB 1.25 MG/3 ML AMPUL NEB SCH ×4 (02:25→19:46)
[2016-11-01] MEDS: DILTIAZEM HCL 60 MG TABLET PO SCH ×4 (03:17→21:40)
[2016-11-01 05:08] LABS: ANION GAP 15 (5-19); BLOOD UREA NITROGEN 31 mg/dL (7-20); CALCIUM 9.8 mg/dL (8.4-10.2); CARBON DIOXIDE 29 mmol/L (22-30); CHLORIDE 94 mmol/L (98-107); CREATININE RESULT 0.92 mg/dL (0.52-1.25); GLUCOSE 186 mg/dL (75-110); POTASSIUM 4.2 mmol/L (3.6-5.0)
[2016-11-01 05:28] LABS: HEMATOCRIT 46.5 % (37.9-51.0); HEMOGLOBIN 15.6 g/dL (13.5-17.0); HGB HCT DIFFERENCE 0.3; MEAN CORPUSCULAR HEMOGLOBIN 29.7 pg (27.0-33.4); MEAN CORPUSCULAR HGB CONC 33.6 g/dL (32.0-36.0); MEAN CORPUSCULAR VOLUME 88 fl (80-97); RED BLOOD COUNT 5.26 10^6/uL (4.35-5.55); WHITE BLOOD COUNT 18.2 10^3/uL (4.0-10.5)
[2016-11-01 05:39] LABS: BAND NEUTROPHILS % (MANUAL) 1 % (3-5); BASOPHILS % (MANUAL) 0 % (0-2); EOSINOPHILS % (MANUAL) 0 % (0-6); LYMPHOCYTES % (MANUAL) 15 % (13-45); TOTAL CELLS COUNTED 100
[2016-11-01 05:40] LABS: OVALOCYTES SLIGHT; POIKILOCYTOSIS SLIGHT; SCHISTOCYTES SLIGHT; TOXIC GRANULATION SLIGHT; TOXIC VACUOLATION PRESENT
[2016-11-01] MEDS: AMOXICILLIN TR/POT CLAVULANATE 500-125 MG TAB PO SCH ×3 (06:11→21:40)
[2016-11-01] MEDS: LANSOPRAZOLE 30 MG TAB.RAP.DR PO SCH ×2 (06:11→15:35)
[2016-11-01] MEDS ORDERED: BUTALB/ACETAMINOPHEN/CAFFEINE 1 TAB EACH PO PRN (09:50)
--- NOTE | 2016-11-01 11:04 | PDOC PROGRESS REPORT ---
Subjective Progress Note for:: 11/01/16 Subjective:: Complains of headache this morning. Physical Exam Vital Signs: Temp Pulse Resp BP Pulse Ox 97.8 F 45 L 18 115/62 98 11/01/16 07:36 11/01/16 07:36 11/01/16 07:36 11/01/16 07:36 11/01/16 07:36 Intake & Output 10/31/16 11/01/16 11/02/16 06:59 06:59 06:59 Intake Total 2019 1779 Output Total 2950 875 Balance -930 905 Weight 98.3 kg 97.8 kg General appearance: PRESENT: no acute distress Eye exam: PRESENT: conjunctiva pink. ABSENT: scleral icterus Mouth exam: PRESENT: moist, tongue midline Neck exam: ABSENT: JVD Respiratory exam: PRESENT: wheezes - Bilateral expiratory wheezes. Cardiovascular exam: PRESENT: RRR. ABSENT: diastolic murmur, rubs, systolic murmur GI/Abdominal exam: PRESENT: normal bowel sounds, soft. ABSENT: distended, guarding, mass, organolmegaly, rebound, tenderness Extremities exam: ABSENT: calf tenderness, clubbing, pedal edema Neurological exam: PRESENT: alert, awake, oriented to person, oriented to place , oriented to time, oriented to situation Psychiatric exam: PRESENT: appropriate affect Skin exam: PRESENT: dry, intact, warm. ABSENT: cyanosis, rash Results Laboratory Results: 11/01/16 04:28 11/01/16 04:28 11/01/16 11/01/16 04:28 04:28 WBC 18.2 H RBC 5.26 Hgb 15.6 Hct 46.5 MCV 88 MCH 29.7 MCHC 33.6 RDW 13.0 Plt Count 281 Seg Neutrophils % Not Reportable Lymphocytes % Not Reportable Monocytes % Not Reportable Eosinophils % Not Reportable Basophils % Not Reportable Absolute Neutrophils Not Reportable Absolute Lymphocytes Not Reportable Absolute Monocytes Not Reportable Absolute Eosinophils Not Reportable Absolute Basophils Not Reportable Sodium 138.0 Potassium 4.2 Chloride 94 L Carbon Dioxide 29 Anion Gap 15 BUN 31 H Creatinine 0.92 Est GFR ( Amer) > 60 Est GFR (Non-Af Amer) > 60 Glucose 186 H Calcium 9.8 10/31/16 05:18 NT-Pro-B Natriuret Pep 304 Impressions: Chest X-Ray 10/25/16 02:23 IMPRESSION: LEFT UPPER LOBE DENSITY SECONDARY TO KNOWN MASS. NO ACUTE FINDINGS. Chest/Abdomen CTA 10/30/16 00:00 IMPRESSION: NO PULMONARY EMBOLI. STABLE TO MINIMAL ENLARGEMENT LEFT UPPER LOBE MASS WHICH REMAINS CONCERNING FOR PRIMARY LUNG NEOPLASM. CORRELATE WITH ANY BRONCHOSCOPY OR BIOPSY RESULTS. Assessment & Plan - Diagnosis (1) COPD exacerbation Is this a current diagnosis for this admission?: YesPlan: Patient continues to improve. We'll continue with the prednisone and Augmentin. (2) Mass of left lung Is this a current diagnosis for this admission?: YesPlan: The CT of the chest shows no real change in size of this lesion. (3) Atrial fibrillation with RVR Is this a current diagnosis for this admission?: YesPlan: Patient is currently in a normal sinus rhythm. The patient is being followed by cardiology. (4) GERD (gastroesophageal reflux disease) Qualifiers: Esophagitis presence: without esophagitis Qualified Code(s): K21.9 - Gastro-esophageal reflux disease without esophagitis Is this a current diagnosis for this admission?: YesPlan: Asymptomatic (5) Hyperkalemia Is this a current diagnosis for this admission?: YesPlan: Resolved (6) Hypertension Qualifiers: Hypertension type: essential hypertension Qualified Code(s): I10 - Essential (primary) hypertension Is this a current diagnosis for this admission?: YesPlan: Blood pressure is under good control. (7) Type 2 diabetes mellitus with hyperglycemia Qualifiers: Diabetes mellitus half-way insulin use: without half-way use Qualified Code(s): E11.65 - Type 2 diabetes mellitus with hyperglycemia Is this a current diagnosis for this admission?: YesPlan: Continue with Lantus and sliding scale insulin. (8) Hyperlipidemia Is this a current diagnosis for this admission?: Yes (9) Seizure Is this a current diagnosis for this admission?: Yes (10) Headache Is this a current diagnosis for this admission?: YesPlan: Patient appears to have a tension headache. Will give Fioricet when necessary. - Time Time Spent with patient: 25-34 minutes - Inpatient Certification Medical Necessity: Need Close Monitoring Due to Risk of Patient Decompensation - Plan Summary Plan Summary: We'll reassess later today and if he is feeling better we may discharge today but if not he'll go back to his assisted living tomorrow.
[2016-11-01] MEDS: FUROSEMIDE 40 MG TABLET PO SCH (11:14)
[2016-11-01] MEDS: DRONEDARONE HYDROCHLORIDE 400 MG TABLET PO SCH ×2 (11:14→15:36)
[2016-11-01] MEDS: PREDNISONE 20 MG TABLET PO SCH (11:15)
[2016-11-01] MEDS: APIXABAN 5 MG TABLET PO SCH ×2 (11:17→23:00)
[2016-11-01] MEDS: INSULIN LISPRO 100 UNIT/ML 3 ML VIAL SUBCUT SCH ×3 (11:18→16:33)
[2016-11-01] MEDS: INSULIN LISPRO 100 UNIT/ML 3 ML VIAL SUBCUT PRN ×2 (16:33→21:45)
[2016-11-01] MEDS: INSULIN GLARGINE,HUM.REC.ANLOG 1,000 UNIT/10 ML UNIT SUBCUT SCH (21:41)
[2016-11-02] MEDS: LEVALBUTEROL HCL NEB 1.25 MG/3 ML AMPUL NEB SCH ×3 (02:36→13:47)
[2016-11-02] MEDS: IPRATROPIUM BROMIDE 0.02% NEB 0.5 MG/2.5 ML AMPUL NEB SCH ×3 (02:36→13:47)
[2016-11-02] MEDS: DILTIAZEM HCL 60 MG TABLET PO SCH ×3 (05:08→15:28)
[2016-11-02] MEDS: AMOXICILLIN TR/POT CLAVULANATE 500-125 MG TAB PO SCH ×2 (05:09→13:26)
[2016-11-02] MEDS: LANSOPRAZOLE 30 MG TAB.RAP.DR PO SCH ×2 (05:09→16:29)
[2016-11-02 06:09] LABS: HEMOGLOBIN 15.9 g/dL (13.5-17.0); HGB HCT DIFFERENCE 0.7; MEAN CORPUSCULAR HEMOGLOBIN 29.7 pg (27.0-33.4); MEAN CORPUSCULAR HGB CONC 33.8 g/dL (32.0-36.0); MEAN CORPUSCULAR VOLUME 88 fl (80-97); RED BLOOD COUNT 5.36 10^6/uL (4.35-5.55); RED CELL DISTRIBUTION WIDTH 13.2 % (11.5-14.0); WHITE BLOOD COUNT 17.3 10^3/uL (4.0-10.5)
[2016-11-02 06:18] LABS: ANION GAP 11 (5-19); BLOOD UREA NITROGEN 31 mg/dL (7-20); CALCIUM 9.7 mg/dL (8.4-10.2); CARBON DIOXIDE 28 mmol/L (22-30); CHLORIDE 96 mmol/L (98-107); CREATININE RESULT 0.99 mg/dL (0.52-1.25); GLUCOSE 233 mg/dL (75-110); POTASSIUM 4.7 mmol/L (3.6-5.0); SODIUM 135.3 mmol/L (137-145)
[2016-11-02 06:58] LABS: BAND NEUTROPHILS % (MANUAL) 3 % (3-5); BASOPHILS % (MANUAL) 0 % (0-2); EOSINOPHILS % (MANUAL) 0 % (0-6); LYMPHOCYTES % (MANUAL) 19 % (13-45); TOTAL CELLS COUNTED 100
[2016-11-02 07:00] LABS: RBC MORPHOLOGY COMMENT NORMO-CYTIC/CHROMIC; TOXIC GRANULATION SLIGHT
[2016-11-02] MEDS: INSULIN LISPRO 100 UNIT/ML 3 ML VIAL SUBCUT PRN ×3 (08:32→16:28)
[2016-11-02] MEDS: INSULIN LISPRO 100 UNIT/ML 3 ML VIAL SUBCUT SCH ×3 (08:32→16:24)
[2016-11-02] MEDS: DRONEDARONE HYDROCHLORIDE 400 MG TABLET PO SCH ×2 (08:34→16:29)
[2016-11-02] MEDS: FUROSEMIDE 40 MG TABLET PO SCH (09:35)
[2016-11-02] MEDS: PREDNISONE 20 MG TABLET PO SCH (09:35)
[2016-11-02] MEDS: APIXABAN 5 MG TABLET PO SCH (09:36)
--- NOTE | 2016-11-02 11:00 | PDOC TRANSFER SUMMARY ---
General - Admit/Disc Date/PCP Admission Date/Primary Care Provider: 10/25/16 07:49 Discharge Date: 11/02/16 - Discharge Diagnosis (1) COPD exacerbation Is this a current diagnosis for this admission?: YesSummary: Being sent home with a steroid taper and a course of Augmentin. (2) Mass of left lung Is this a current diagnosis for this admission?: YesSummary: CT scan shows a slight increase in size. (3) Atrial fibrillation with RVR Is this a current diagnosis for this admission?: YesSummary: Patient has paroxysmal atrial fibrillation and is currently in a normal sinus rhythm. Patient was seen by cardiology who started him on multiple tach and anticoagulation. (4) GERD (gastroesophageal reflux disease) Is this a current diagnosis for this admission?: Yes (5) Hyperkalemia Is this a current diagnosis for this admission?: Yes (6) Hypertension Is this a current diagnosis for this admission?: Yes (7) Type 2 diabetes mellitus with hyperglycemia Is this a current diagnosis for this admission?: Yes (8) Hyperlipidemia Is this a current diagnosis for this admission?: Yes (9) Seizure Is this a current diagnosis for this admission?: Yes - Additional Information Resuscitation Status: Do Not Resuscitate Discharge Diet: Diabetic Discharge Activity: Activity As Tolerated Home Medications: Albuterol Sulfate [Ventolin Hfa 8 gm Mdi (1 Mdi/ER Disp)] 2 puff PO Q4HP PRN Aspirin [Aspirin 81 mg Chewable Tablet] 81 mg PO DAILY 10/25/16 Atorvastatin Calcium [Lipitor 80 mg Tablet] 80 mg PO QAM 10/25/16 Fluoxetine HCl [Prozac] 40 mg PO DAILY 10/25/16 Lisinopril [Prinivil] 20 mg PO DAILY 10/25/16 Metformin HCl 500 mg PO QPM 10/25/16 Amox Tr/Potassium Clavulanate [Augmentin "500" Tablet] 1 tab PO Q8 #18 tablet 11/02/16 Apixaban [Eliquis 5 mg Tablet] 5 mg PO Q12 tablet 11/02/16 Diltiazem HCl [Diltiazem 24Hr Cd] 240 mg PO DAILY #30 cap.er.24h 11/02/16 Dronedarone Hydrochloride [Multaq 400 mg Tablet] 400 mg PO BIDBS #60 tablet 10/20 Insulin Glargine,Hum.rec.anlog [Lantus Insulin 100 Unit/1 ml 10 ml] 20 unit SUBCUT QHS unit 11/02/16 Insulin Lispro [Humalog Insulin (Lispro) 100 unit/mL] 8 unit SUBCUT AC unit 10/20 Nicotine [Nicoderm 21 mg/24 Hr Transderm Patch] 1 each TD DAILYP PRN patch.td24 11/02/16 Prednisone [Deltasone 20 mg Tablet] 10 mg PO DAILY #39 tablet 11/02/16 History of Present Illness Admission Date/PCP: 10/25/16 07:49 History of Present Illness: IVELISSE RITTER is a 66 year old male, with underlying COPD, 2-1/2-3 pack per day smoker, who presents to the emergency room for evaluation of a 2 to three-day history of slowly progressive worsening shortness of breath, in particular with much of any exertion or continued smoking. Dry cough. Little relief with his albuterol inhaler at home. Similar symptoms in past with COPD exacerbation. Denies fever chills, nausea vomiting, diarrhea or dysuria. No chest pain. Patient still experiencing a fair amount of wheezing despite multiple treatments given in the emergency room so far. Hospital Course Hospital Course: 66-year-old gentleman who presented with acute COPD exacerbation. Patient also was found to be in atrial fibrillation with a rapid ventricular rate. Patient' s COPD exacerbation was treated with IV steroids and nebulizers. His respiratory status improved and he was switched over to oral steroids and Augmentin for antibiotic although he did not have an obvious infiltrate. The patient did have atrial fibrillation and was seen by cardiology. They recommended starting will multaq and he was put on anticoagulation. He converted back into normal sinus rhythm. Patient's follow-up with cardiology in 2 weeks after discharge. he also has a left lung mass which which was evaluated with a chest CT which shows a slight increase in size from the previous one. The patient has very poor pulmonary status baseline and he will keep his scheduled outpatient follow pulmonary medicine for evaluation of this mass. Patient's other medical problems were stable during this hospitalization. Physical Exam Vital Signs: Temp Pulse Resp BP Pulse Ox 97.3 F 62 14 133/70 H 92 11/02/16 08:00 11/02/16 08:00 11/02/16 08:00 11/02/16 08:00 11/02/16 08:00 Intake & Output 11/01/16 11/02/16 11/03/16 06:59 06:59 06:59 Intake Total 1780 2260 Output Total 875 300 Balance 905 1960 Weight 97.8 kg 98.5 kg General appearance: PRESENT: no acute distress Eye exam: PRESENT: conjunctiva pink. ABSENT: scleral icterus Mouth exam: PRESENT: moist, tongue midline Neck exam: ABSENT: JVD Respiratory exam: PRESENT: clear to auscultation danni. ABSENT: rales, rhonchi, wheezes Cardiovascular exam: PRESENT: RRR, systolic murmur - 1/6 systolic murmur. ABSENT: diastolic murmur, rubs GI/Abdominal exam: PRESENT: normal bowel sounds, soft. ABSENT: distended, guarding, mass, organolmegaly, rebound, tenderness Extremities exam: ABSENT: calf tenderness, clubbing, pedal edema Neurological exam: PRESENT: alert, awake, oriented to person, oriented to place , oriented to time, oriented to situation, other - Patient has decreased visual acuity Psychiatric exam: PRESENT: appropriate affect Skin exam: PRESENT: dry, intact, warm. ABSENT: cyanosis, rash Results Laboratory Results: 11/02/16 05:33 11/02/16 05:33 11/02/16 11/02/16 05:33 05:33 WBC 17.3 H RBC 5.36 Hgb 15.9 Hct 47.0 MCV 88 MCH 29.7 MCHC 33.8 RDW 13.2 Plt Count 286 Seg Neutrophils % Not Reportable Lymphocytes % Not Reportable Monocytes % Not Reportable Eosinophils % Not Reportable Basophils % Not Reportable Absolute Neutrophils Not Reportable Absolute Lymphocytes Not Reportable Absolute Monocytes Not Reportable Absolute Eosinophils Not Reportable Absolute Basophils Not Reportable Sodium 135.3 L Potassium 4.7 Chloride 96 L Carbon Dioxide 28 Anion Gap 11 BUN 31 H Creatinine 0.99 Est GFR ( Amer) > 60 Est GFR (Non-Af Amer) > 60 Glucose 233 H Calcium 9.7 10/31/16 05:18 NT-Pro-B Natriuret Pep 304 Impressions: Chest X-Ray 10/25/16 02:23 IMPRESSION: LEFT UPPER LOBE DENSITY SECONDARY TO KNOWN MASS. NO ACUTE FINDINGS. Chest/Abdomen CTA 10/30/16 00:00 IMPRESSION: NO PULMONARY EMBOLI. STABLE TO MINIMAL ENLARGEMENT LEFT UPPER LOBE MASS WHICH REMAINS CONCERNING FOR PRIMARY LUNG NEOPLASM. CORRELATE WITH ANY BRONCHOSCOPY OR BIOPSY RESULTS. Transfer Plan - Disposition Transfer Plan: The patient is to be transferred back to the [facility] in [facility] where he was a resident at before he came to the hospital this time. - Time Spent with Patient Time spent with patient: Greater than 30 Minutes Qualifiers PATEINT BEING DISCHARGED WITH ANY OF THE FOLLOWING DIAGNOSIS?: No Plan Discharge Plan: Patient is transferred to [facility] in [facility] Time Spent: Greater than 30 Minutes
[2016-11-02 15:21] VITALS: BP 100/63
== END 2016-11-02 17:10 | disposition home health service (06) | DRG 192 ==
LOC: ER 22:38 → UNDOADMIN 10-25 04:44 → EH 10-25 04:44 → 3W 10-25 08:33 → EH 10-25 08:33
PROVIDERS: ADMIT Family Medicine; ATTEND Family Medicine
PROC: 3E0F73Z Introduction of Anti-inflammatory into Respiratory Tract, Via Natural or Artificial Opening (ICD-10-PCS; principal; 2016-10-25)
DX: J44.1 Chronic obstructive pulmonary disease with (acute) exacerbation (principal); I48.0 Paroxysmal atrial fibrillation; F17.210 Nicotine dependence, cigarettes, uncomplicated; R91.1 Solitary pulmonary nodule; E78.5 Hyperlipidemia, unspecified; I10 Essential (primary) hypertension; H54.8 Legal blindness, as defined in USA; K21.9 Gastro-esophageal reflux disease without esophagitis; E11.65 Type 2 diabetes mellitus with hyperglycemia; M19.90 Unspecified osteoarthritis, unspecified site; F32.9 Major depressive disorder, single episode, unspecified; G44.209 Tension-type headache, unspecified, not intractable; Z66 Do not resuscitate; F10.20 Alcohol dependence, uncomplicated; F41.1 Generalized anxiety disorder; G40.909 Epilepsy, unspecified, not intractable, without status epilepticus; Z86.73 Personal history of transient ischemic attack (TIA), and cerebral infarction without residual deficits; Z79.01 Long term (current) use of anticoagulants; Z87.11 Personal history of peptic ulcer disease; Z90.49 Acquired absence of other specified parts of digestive tract; Z79.82 Long term (current) use of aspirin; Z79.84 Long term (current) use of oral hypoglycemic drugs; Z79.4 Long term (current) use of insulin; Z88.8 Allergy status to other drugs, medicaments and biological substances
CPT/HCPCS: 36415; 71010; 71275; 80048; 81001; 82962; 83735; 83880; 85025; 85027; 87040; 87086; 93005; 93010; 93306; 94640; 94799; 96374; 99291; G8978-GP; G8979-GP; J0153; J0456; J0692; J1650; J1815; J1940; J2930; J3475; J3490; J7030; J7060; J7512; J7620

== ENCOUNTER 2016-12-22 13:13 | Emergency (ER) | payer MEDICARE, MEDICAID ==
--- NOTE | 2016-12-22 13:40 | ER Document Report ---
ED Medical Screen (RME) - General Chief Complaint: Psych Problem Stated Complaint: IVC WITH PAPERS Notes: This 66-year-old patient with diabetes, hypertension, COPD, lives in assisted living in [facility]. Brought on IVC papers allegedly walked out into the road with traffic in an attempt to go to critical access hospital, combative using a walking stick as a weapon and is refusing take his medications. I have greeted and performed a rapid initial assessment of this patient. A comprehensive ED assessment and evaluation of the patient, analysis of test results and completion of the medical decision making process will be conducted by additional ED providers. TRAVEL OUTSIDE OF THE [place] IN LAST 30 DAYS: No - Related Data Allergies/Adverse Reactions: naproxen Allergy (Verified 12/22/16 13:26) Past Medical History - Past Medical History Cardiac Medical History: Reports: Hx Hypercholesterolemia, Hx Hypertension Denies: Hx Congestive Heart Failure, Hx DVT, Hx Heart Attack, Hx Pulmonary Embolism Pulmonary Medical History: Reports: Hx Bronchitis, Hx COPD, Hx Tuberculosis - History of Neurological Medical History: Reports: Hx Cerebrovascular Accident, Hx Seizures - Multiple prior, typically accompanying his strokes. Endocrine Medical History: Denies: Hx Diabetes Mellitus Type 1, Hx Diabetes Mellitus Type 2, Hx Hyperthyroidism, Hx Hypothyroidism Renal/ Medical History: Denies: Hx Peritoneal Dialysis GI Medical History: Reports: Hx Gastroesophageal Reflux Disease, Hx Ulcer. Denies: Hx Cirrhosis, Hx Hepatitis Musculoskeltal Medical History: Reports Hx Arthritis Psychiatric Medical History: Reports: Hx Depression Infectious Medical History: Denies: Hx Hepatitis Past Surgical History: Reports: Hx Cholecystectomy - Immunizations Hx Diphtheria, Pertussis, Tetanus Vaccination: Yes Physical Exam - Vital signs Vitals: Temp Pulse Resp BP Pulse Ox 97.5 F 104 H 16 135/79 H 96 12/22/16 13:26 12/22/16 13:26 12/22/16 13:26 12/22/16 13:26 12/22/16 13:26 Course - Vital Signs Vital signs: Temp Pulse Resp BP Pulse Ox 97.5 F 104 H 16 135/79 H 96 12/22/16 13:26 12/22/16 13:26 12/22/16 13:26 12/22/16 13:26 12/22/16 13:26
--- NOTE | 2016-12-22 13:50 | ER Document Report ---
ED General - General Chief Complaint: Psych Problem Stated Complaint: IVC WITH PAPERS Mode of Arrival: Medic Information source: Patient Notes: 66-year-old male presents with IVC paperwork due to combative behavior suicidal ideations, appears patient attempted to walk into traffic refusing to take medications TRAVEL OUTSIDE OF THE [place] IN LAST 30 DAYS: No - HPI Onset: Just prior to arrival Onset/Duration: Sudden Quality of pain: No pain Severity: Mild Pain Level: Denies Exacerbated by: Denies Similar symptoms previously: Yes Recently seen / treated by doctor: Yes - Related Data Allergies/Adverse Reactions: naproxen Allergy (Verified 12/22/16 13:26) Home Medications: Current Home Medications Acetaminophen [Tylenol] 650 mg PO Q4HP PRN 12/22/16 [History] Albuterol Sulfate [Ventolin Hfa] 2 puff IH Q4HP PRN 12/22/16 [History] Apixaban [Eliquis] 5 mg PO Q12 12/22/16 [History] Aspirin [Aspirin 81 mg Chewable Tablet] 81 mg PO DAILY 12/22/16 [History] Atorvastatin Calcium [Lipitor 80 mg Tablet] 80 mg PO DAILY 12/22/16 [History] Diltiazem HCl [Diltiazem 24Hr Cd] 240 mg PO DAILY 12/22/16 [History] Dronedarone Hydrochloride [Multaq 400 Mg Tablet] 400 mg PO Q12 12/22/16 [History ] Fluoxetine HCl [Prozac] 40 mg PO DAILY 12/22/16 [History] Furosemide [Lasix] 40 mg PO DAILY 12/22/16 [History] Insulin Glargine,Hum.rec.anlog [Lantus Insulin 100 Unit/1 ml 10 ml] 20 unit SUBCUT QHS 12/22/16 [History] Insulin Lispro [Humalog Insulin (Lispro) 100 unit/mL] 8 unit SUBCUT MEALS [History] Lisinopril [Zestril] 20 mg PO DAILY 12/22/16 [History] Metformin HCl [Glucophage] 500 mg PO DAILY 12/22/16 [History] Nicotine [Nicoderm 21 mg/24 Hr Transderm Patch] 1 patch TD DAILYP PRN 12/22/16 [ History] Past Medical History - Social History Smoking Status: Never Smoker Cigarette use (# per day): No Chew tobacco use (# tins/day): No Smoking Education Provided: No Family History: Reviewed & Not Pertinent Patient has suicidal ideation: Yes Patient has homicidal ideation: No - Past Medical History Cardiac Medical History: Reports: Hx Hypercholesterolemia, Hx Hypertension Denies: Hx Congestive Heart Failure, Hx DVT, Hx Heart Attack, Hx Pulmonary Embolism Pulmonary Medical History: Reports: Hx Bronchitis, Hx COPD, Hx Tuberculosis - History of Neurological Medical History: Reports: Hx Cerebrovascular Accident, Hx Seizures - Multiple prior, typically accompanying his strokes. Endocrine Medical History: Denies: Hx Diabetes Mellitus Type 1, Hx Diabetes Mellitus Type 2, Hx Hyperthyroidism, Hx Hypothyroidism Renal/ Medical History: Denies: Hx Peritoneal Dialysis GI Medical History: Reports: Hx Gastroesophageal Reflux Disease, Hx Ulcer. Denies: Hx Cirrhosis, Hx Hepatitis Musculoskeltal Medical History: Reports Hx Arthritis Psychiatric Medical History: Reports: Hx Depression Infectious Medical History: Denies: Hx Hepatitis Past Surgical History: Reports: Hx Cholecystectomy - Immunizations Hx Diphtheria, Pertussis, Tetanus Vaccination: Yes Review of Systems - Review of Systems Notes: REVIEW OF SYSTEMS: CONSTITUTIONAL : Denies fever, chills, or sweats. Denies recent illness. EENT: Denies eye, ear, throat, or mouth pain or symptoms. Denies nasal or sinus congestion or discharge. Denies throat, tongue, or mouth swelling or difficulty swallowing. CARDIOVASCULAR: Denies chest pain. Denies palpitations or racing or irregular heart beat. Denies ankle edema. RESPIRATORY: Denies cough, cold, or chest congestion. Denies shortness of breath, difficulty breathing, or wheezing. GASTROINTESTINAL: Denies abdominal pain or distention. Denies nausea, vomiting , or diarrhea. Denies blood in vomitus, stools, or per rectum. Denies black, tarry stools. Denies constipation. GENITOURINARY: Denies difficulty urinating, painful urination, burning, frequency, blood in urine, or discharge. MUSCULOSKELETAL: Denies back or neck pain or stiffness. Denies joint pain or swelling. SKIN: Denies rash, lesions or sores. HEMATOLOGIC : Denies easy bruising or bleeding. LYMPHATIC: Denies swollen, enlarged glands. NEUROLOGICAL: Denies confusion or altered mental status. Denies passing out or loss of consciousness. Denies dizziness or lightheadedness. Denies headache. Denies weakness or paralysis or loss of use of either side. Denies problems with gait or speech. Denies sensory loss, numbness, or tingling. Denies seizures. PSYCHIATRIC: Admits to suicidal ideation. ALL OTHER SYSTEMS REVIEWED AND NEGATIVE. Dictation was performed using [employer] voice recognition software PHYSICAL EXAMINATION: GENERAL: Well-appearing, well-nourished and in no acute distress. HEAD: Atraumatic, normocephalic. EYES: Pupils equal round and reactive to light, extraocular movements intact, sclera anicteric, conjunctiva are normal. ENT: Nares patent, oropharynx clear without exudates. Moist mucous membranes. NECK: Normal range of motion, supple without lymphadenopathy LUNGS: Breath sounds clear to auscultation bilaterally and equal. No wheezes rales or rhonchi. HEART: Regular rate and rhythm without murmurs ABDOMEN: Soft, nontender, nondistended abdomen. No guarding, no rebound. No masses appreciated. Musculoskeletal: Normal range of motion, no pitting or edema. No cyanosis. NEUROLOGICAL: Cranial nerves grossly intact. Normal speech, normal gait. Normal sensory, motor exams PSYCH: Normal mood, normal affect. SKIN: Warm, Dry, normal turgor, no rashes or lesions noted. Physical Exam - Vital signs Vitals: Temp Pulse Resp BP Pulse Ox 97.5 F 104 H 16 135/79 H 96 12/22/16 13:26 12/22/16 13:26 12/22/16 13:26 12/22/16 13:26 12/22/16 13:26 Course - Re-evaluation Re-evalutation: 12/22/16 13:50 Lab work pending patient involuntarily held and will require mental health evaluation 12/22/16 15:17 Medically patient has been cleared - Vital Signs Vital signs: Temp Pulse Resp BP Pulse Ox 97.5 F 104 H 16 135/79 H 96 12/22/16 13:26 12/22/16 13:26 12/22/16 13:26 12/22/16 13:26 12/22/16 13:26 - Laboratory Result Diagrams: 12/22/16 14:00 12/22/16 14:00 Laboratory results interpreted by me: 12/22/16 14:00 Glucose 317 H Alkaline Phosphatase 165 H Salicylates < 1.0 L Acetaminophen < 10 L - EKG Interpretation by [place] EKG shows normal: Sinus rhythm, [place], Intervals, QRS Complexes Discharge - Discharge Clinical Impression: Suicidal behavior Qualifiers: Attempted self-injury: with attempted self-injury Qualified Code(s): T14.91 - Suicide attempt Condition: Stable Disposition: PSYCH HOSP/UNIT Additional Instructions: Please follow-up with the care plan provided to you by mental health team will return immediately if there are any other concerns
[2016-12-22 14:25] LABS: ABSOLUTE BASOPHILS # (AUTO) 0.1 10^3/uL (0.0-0.2); ABSOLUTE EOSINOPHILS # (AUTO) 0.2 10^3/uL (0.0-0.6); ABSOLUTE LYMPHOCYTES (AUTO) 2.4 10^3/uL (0.5-4.7); ABSOLUTE MONOCYTES (AUTO) 1.3 10^3/uL (0.1-1.4); ABSOLUTE NEUT (AUTO) 6.1 10^3/uL (1.7-8.2); BASOPHILS % (AUTO) 0.7 % (0-2); EOSINOPHILS % (AUTO) 1.9 % (0-6); HEMATOCRIT 43.6 % (37.9-51.0); HGB HCT DIFFERENCE 1.4; MEAN CORPUSCULAR HEMOGLOBIN 30.1 pg (27.0-33.4); MEAN CORPUSCULAR HGB CONC 34.4 g/dL (32.0-36.0); MEAN CORPUSCULAR VOLUME 88 fl (80-97); MONOCYTES % (AUTO) 12.9 % (3-13); RED BLOOD COUNT 4.98 10^6/uL (4.35-5.55); RED CELL DISTRIBUTION WIDTH 13.8 % (11.5-14.0); SEGMENTED NEUTROPHILS % (AUTO) 60.5 % (42-78)
[2016-12-22 14:46] LABS: ALANINE AMINOTRANSFERASE 30 U/L (21-72); ALBUMIN 4.3 g/dL (3.5-5.0); ALKALINE PHOSPHATASE 165 U/L (38-126); ANION GAP 14 (5-19); ASPARTATE AMINO TRANSFERASE 30 U/L (17-59); BILIRUBIN,DIRECT 0.2 mg/dL (0.0-0.4); BILIRUBIN,TOTAL 0.5 mg/dL (0.2-1.3); BLOOD UREA NITROGEN 12 mg/dL (7-20); CALCIUM 9.7 mg/dL (8.4-10.2); CARBON DIOXIDE 24 mmol/L (22-30); CHLORIDE 100 mmol/L (98-107); CREATININE RESULT 0.74 mg/dL (0.52-1.25); GLUCOSE 317 mg/dL (75-110); POTASSIUM 4.4 mmol/L (3.6-5.0); SODIUM 138.1 mmol/L (137-145); TOTAL PROTEIN 7.3 g/dL (6.3-8.2)
[2016-12-22 14:47] LABS: ALCOHOL < 10 mg/dL (NONE DETECTED)
[2016-12-22] MEDS ORDERED: HALOPERIDOL LACTATE INJ 5 MG/1 ML VIAL IM ONE (15:22)
[2016-12-22] MEDS ORDERED: DIPHENHYDRAMINE HCL 50 MG/ML VIAL IM ONE (15:23)
[2016-12-22 15:29] LABS: APPEARANCE,URINE CLEAR; BILIRUBIN,URINE NEGATIVE (NEGATIVE); GLUCOSE, URINE >=500 mg/dL (NEGATIVE); KETONES,URINE NEGATIVE (NEGATIVE); LEUKOCYTE ESTERASE,URINE NEGATIVE (NEGATIVE); NITRITE,URINE NEGATIVE (NEGATIVE); PROTEIN,URINE NEGATIVE (NEGATIVE); URINE SPECIFIC GRAVITY 1.025; UROBILINOGEN,URINE NEGATIVE mg/dL (<2.0)
[2016-12-22 15:43] LABS: URINE BARBITURATES SCREEN NEGATIVE; URINE METHADONE SCREEN NEGATIVE; URINE OPIATES LOW NEGATIVE; URINE PHENCYCLIDINE SCREEN NEGATIVE
--- NOTE | 2016-12-22 16:38 | PSYCHOLOGICAL NOTE ---
Psych Note - Psych Note Psych Note: patient to the ED from assisted living facility on IVC petition. Patient has no complaints and denies SI or HI. Petition from [employer] says that he walked into traffic in an attempt to go "[place]" [place] he says [place]. They say patient is suicidal and has stopped taking his medication in a secondary attempt at his life. patient denies this. Patient states that he "lives by himself." He continued to state that he is not crazy. Patient disclosed that they accused him of beating people up with his cane but he states "I'm not crazy that's my eyeballs." Clinician notes patient is legally blind which necessitates the cane however it is also noted by multiple sources to include [facility] staff that patient does use his cane as a weapon. Patient states that he is medication compliant takes "1 tab a day." Patient was unable to disclose what that medication is. 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 Patient denies seeing anybody for outpatient services for mental health. Clinician contacted [facility] and spoke with Macarena. She disclosed the patient suffers from dementia, gets very angry and has been declining. She states that the patient's hygiene has suffered and last night they made him bathe. This started a chain reaction of that led to today. She disclosed that the patient became very angry and started walking down the road. She states that in [place], it is very dangerous to walk down the road. She continued disclosed that [facility] mobile crisis, the fire department and police were called. She states that it seemed as if the patient flourished under all the attention. She states that the patient has expressed he does not care if he lives. She continues to state the patient says he was going to leave however he can't remember he no longer has home to go to; [facility] placed the patient at [facility] home because of self-neglect. She disclose concern that the patient has been very resistant and when asked what he would like, he states he wants his eyesight back and then states "I just want to gail help me ." She disclosed the patient has a long history of noncompliance with medication and he is seen at [facility]. Patient is alert and orientated to person, place. Mood is elevated with forced congruent affect. Patient denies suicidal and homicidal ideation. Patient denies auditory and visual hallucinations; patient is not demonstrating behaviour what would be congruent to responding to internal stimuli. No delusions are noted. Thought process is organized and linear. Thought content appears to be impaired, patient's memory and reports are not congruent with known reports. Eye contact was well maintained. Intellectual abilities appear to be within average range. Attention and concentration is good. Insight, judgment, and impulse control are historically poor due to dementia diagnosis. 799.59 (R41.9) Unspecified Neurocognitive Disorder Impression/Plan: Patient is recommended to rescind of IVC; he does not meet criteria [place] GS 122C. Patient has a diagnosis of dementia and all concerns identified are congruent with this diagnosis. Patient is his own guardian and can refuse medication. Dr. Person was consulted on the care and management of this patient; attending physician is in agreement with recommendations and disposition.
--- NOTE | 2016-12-22 17:18 | ER Document Report ---
ED Psych Disorder / Suicide - General Chief Complaint: Psych Problem Stated Complaint: IVC WITH PAPERS Mode of Arrival: Medic TRAVEL OUTSIDE OF THE [place] IN LAST 30 DAYS: No - HPI Notes: patient to the ED from assisted living facility on IVC petition. Patient has no complaints and denies SI or HI. Petition from [employer] says that he walked into traffic in an attempt to go "home" which he says is [place]. They say patient is suicidal and has stopped taking his medication in a secondary attempt at his life. patient denies this. Patient states that he "lives by himself." He continued to state that he is not crazy. Patient disclosed that they accused him of beating people up with his cane but he states "I'm not crazy that's my eyeballs." Clinician notes patient is legally blind which necessitates the cane however it is also noted by multiple sources to include [facility] staff that patient does use his cane as a weapon. Patient states that he is medication compliant takes "1 tab a day." Patient was unable to disclose what that medication is. 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 Patient denies seeing anybody for outpatient services for mental health. Clinician contacted [facility] and spoke with Macarena. She disclosed the patient suffers from dementia, gets very angry and has been declining. She states that the patient's hygiene has suffered and last night they made him bathe. This started a chain reaction of that led to today. She disclosed that the patient became very angry and started walking down the road. She states that in [place], it is very dangerous to walk down the road. She continued disclosed that [facility] mobile crisis, the fire department and police were called. She states that it seemed as if the patient flourished under all the attention. She states that the patient has expressed he does not care if he lives. She continues to state the patient says he was going to leave however he can't remember he no longer has home to go to; [facility] placed the patient at [facility] because of self-neglect. She disclose concern that the patient has been very resistant and when asked what he would like, he states he wants his eyesight back and then states "I just want to gail help me ." She disclosed the patient has a long history of noncompliance with medication and he is seen at [facility]. Patient is alert and orientated to person, place. Mood is elevated with forced congruent affect. Patient denies suicidal and homicidal ideation. Patient denies auditory and visual hallucinations; patient is not demonstrating behaviour what would be congruent to responding to internal stimuli. No delusions are noted. Thought process is organized and linear. Thought content appears to be impaired, patient's memory and reports are not congruent with known reports. Eye contact was well maintained. Intellectual abilities appear to be within average range. Attention and concentration is good. Insight, judgment, and impulse control are historically poor due to dementia diagnosis. 799.59 (R41.9) Unspecified Neurocognitive Disorder Impression/Plan: Patient is recommended to rescind of IVC; he does not meet criteria [place] GS 122C. Patient has a diagnosis of dementia and all concerns identified are congruent with this diagnosis. Patient is his own guardian and can refuse medication. Dr. Person was consulted on the care and management of this patient; attending physician is in agreement with recommendations and disposition. - Related Data Allergies/Adverse Reactions: naproxen Allergy (Verified 12/22/16 13:26) Home Medications: Current Home Medications Acetaminophen [Tylenol] 650 mg PO Q4HP PRN 12/22/16 [History] Albuterol Sulfate [Ventolin Hfa] 2 puff IH Q4HP PRN 12/22/16 [History] Apixaban [Eliquis] 5 mg PO Q12 12/22/16 [History] Aspirin [Aspirin 81 mg Chewable Tablet] 81 mg PO DAILY 12/22/16 [History] Atorvastatin Calcium [Lipitor 80 mg Tablet] 80 mg PO DAILY 12/22/16 [History] Diltiazem HCl [Diltiazem 24Hr Cd] 240 mg PO DAILY 12/22/16 [History] Dronedarone Hydrochloride [Multaq 400 Mg Tablet] 400 mg PO Q12 12/22/16 [History ] Fluoxetine HCl [Prozac] 40 mg PO DAILY 12/22/16 [History] Furosemide [Lasix] 40 mg PO DAILY 12/22/16 [History] Insulin Glargine,Hum.rec.anlog [Lantus Insulin 100 Unit/1 ml 10 ml] 20 unit SUBCUT QHS 12/22/16 [History] Insulin Lispro [Humalog Insulin (Lispro) 100 unit/mL] 8 unit SUBCUT MEALS [History] Lisinopril [Zestril] 20 mg PO DAILY 12/22/16 [History] Metformin HCl [Glucophage] 500 mg PO DAILY 12/22/16 [History] Nicotine [Nicoderm 21 mg/24 Hr Transderm Patch] 1 patch TD DAILYP PRN 12/22/16 [ History] Past Medical History - General Information source: Patient - Social History Smoking Status: Never Smoker Cigarette use (# per day): No Chew tobacco use (# tins/day): No Frequency of alcohol use: None Drug Abuse: None Family History: Reviewed & Not Pertinent Patient has suicidal ideation: Yes Patient has homicidal ideation: No - Past Medical History Cardiac Medical History: Reports: Hx Hypercholesterolemia, Hx Hypertension Denies: Hx Congestive Heart Failure, Hx DVT, Hx Heart Attack, Hx Pulmonary Embolism Pulmonary Medical History: Reports: Hx Bronchitis, Hx COPD, Hx Tuberculosis - History of Neurological Medical History: Reports: Hx Cerebrovascular Accident, Hx Seizures - Multiple prior, typically accompanying his strokes. Endocrine Medical History: Denies: Hx Diabetes Mellitus Type 1, Hx Diabetes Mellitus Type 2, Hx Hyperthyroidism, Hx Hypothyroidism Renal/ Medical History: Denies: Hx Peritoneal Dialysis GI Medical History: Reports: Hx Gastroesophageal Reflux Disease, Hx Ulcer. Denies: Hx Cirrhosis, Hx Hepatitis Musculoskeltal Medical History: Reports Hx Arthritis Psychiatric Medical History: Reports: Hx Depression Infectious Medical History: Denies: Hx Hepatitis Past Surgical History: Reports: Hx Cholecystectomy - Immunizations Hx Diphtheria, Pertussis, Tetanus Vaccination: Yes Physical Exam - Vital signs Vitals: Temp Pulse Resp BP Pulse Ox 97.5 F 122 H 16 135/79 H 96 12/22/16 13:24 12/22/16 13:24 12/22/16 13:24 12/22/16 13:24 12/22/16 13:24 Course - Vital Signs Vital signs: Temp Pulse Resp BP Pulse Ox 97.5 F 104 H 16 135/79 H 96 12/22/16 13:26 12/22/16 13:26 12/22/16 13:26 12/22/16 13:26 12/22/16 13:26 - Laboratory Result Diagrams: 12/22/16 14:00 12/22/16 14:00 Laboratory results interpreted by me: 12/22/16 12/22/16 13:30 14:00 Glucose 317 H Alkaline Phosphatase 165 H Urine Glucose (UA) >=500 H Urine Blood SMALL H Salicylates < 1.0 L Acetaminophen < 10 L Discharge - Discharge Clinical Impression: Suicidal behavior Qualifiers: Attempted self-injury: without attempted self-injury Qualified Code(s): R46.89 - Other symptoms and signs involving appearance and behavior Dementia Qualifiers: Dementia type: unspecified type Dementia behavioral disturbance: with behavioral disturbance Qualified Code(s): F03.91 - Unspecified dementia with behavioral disturbance Condition: Stable Disposition: HOME, SELF-CARE Additional Instructions: Dementia The exam shows a decrease in mental ability called dementia. Signs of dementia include a gradual loss of memory and a decreased ability to reason and solve problems. Personality changes, hostility, lack of self-care, and loss of bladder or bowel control are later signs of dementia. In these later stages, patients may become confused, lost, fearful, or agitated, even in familiar places. Alzheimer's disease is the most common type of dementia. It has no known cause or specific treatment. Other causes include alcohol and drug abuse, medication effects (especially tranquilizers and sleeping pills), strokes, head injuries, and brain tumors. Sometimes severe depression in an elderly person is mistaken for dementia, and this can be treated if recognized. A complete medical evaluation and ongoing care with a doctor is important. Most people with dementia need help or supervision with daily living. Some may be able to live independently with occasional help; others require foster care or even jail placement. Alcohol, sedatives, and antihistamines may make the symptoms worse and should be avoided. Alzheimer's disease support groups are available in some communities and can be very valuable to the entire family. Prescription medication can ease the symptoms of Alzheimer's disease in some patients. Please arrange for medical follow-up. Return here if there is a sudden change in mental function, inability to move an arm or leg, inability to speak, fever, or any other significant change. Please follow-up with the care plan provided to you by mental health team will return immediately if there are any other concerns
[2016-12-22 20:08] VITALS: BP 122/75
--- NOTE | 2016-12-22 21:53 | EKG REPORT ---
SEVERITY:- BORDERLINE ECG - SINUS TACHYCARDIA WITH IRREGULAR RATE [id number] : Confirmed by: Shahnaz Hernandez MD 22-Dec-2016 21:51:15
== END 2016-12-22 20:23 | disposition home or self-care (01) ==
LOC: ER 13:13
DX: T14.91 Suicide attempt (principal); F03.91 Unspecified dementia, unspecified severity, with behavioral disturbance; R46.89 Other symptoms and signs involving appearance and behavior; E11.65 Type 2 diabetes mellitus with hyperglycemia; R45.851 Suicidal ideations; R41.9 Unspecified symptoms and signs involving cognitive functions and awareness; I10 Essential (primary) hypertension; H54.8 Legal blindness, as defined in USA; J44.9 Chronic obstructive pulmonary disease, unspecified; E78.00 Pure hypercholesterolemia, unspecified; Z90.49 Acquired absence of other specified parts of digestive tract; Z79.82 Long term (current) use of aspirin; Z79.4 Long term (current) use of insulin; Z86.73 Personal history of transient ischemic attack (TIA), and cerebral infarction without residual deficits
CPT/HCPCS: 93005; 99285; 96372; 36415; 80307 ×4; 85025; 80053; 81001; 93010; J1200; J1630

== ENCOUNTER 2017-01-04 23:48 | Emergency (ER) | payer MEDICARE, MEDICAID ==
[2017-01-05] MEDS ORDERED: NORMAL SALINE 1000 ML 500 ML IV ONE (00:17)
[2017-01-05] MEDS ORDERED: ONDANSETRON HCL INJ/PF 4 MG/2 ML SDV IV ONE (00:17)
[2017-01-05] MEDS ORDERED: FAMOTIDINE 20 MG TABLET PO ONE (00:19)
[2017-01-05] MEDS ORDERED: NORMAL SALINE 1000 ML 1,000 ML IV ONE (00:20)
--- NOTE | 2017-01-05 00:21 | ER Document Report ---
ED GI/ - General Chief Complaint: Nausea/Vomiting Stated Complaint: NAUSEA,VOMITING Time seen by provider: 00:19 Notes: Patient is a 66-year-old male that comes emergency department for chief complaint of vomiting, reportedly patient has vomited several times starting last night, denies diarrhea, he reports some cramps in his upper abdomen and hickups, he denies fever or chills, he denies flank pain. He denies chest pain or shortness of breath. He states he had a normal bowel movement earlier today. Past medical history of type II diabetes, atrial fibrillation, CVA, COPD, blindness. TRAVEL OUTSIDE OF THE [place] IN LAST 30 DAYS: No - Related Data Allergies/Adverse Reactions: naproxen Allergy (Verified 01/05/17 00:02) Past Medical History - General Information source: Patient - Social History Smoking Status: Never Smoker Chew tobacco use (# tins/day): No Frequency of alcohol use: None Drug Abuse: None Lives with: Family Family History: Reviewed & Not Pertinent Patient has suicidal ideation: No Patient has homicidal ideation: No - Past Medical History Cardiac Medical History: Reports: Hx Hypercholesterolemia, Hx Hypertension Denies: Hx Congestive Heart Failure, Hx DVT, Hx Heart Attack, Hx Pulmonary Embolism Pulmonary Medical History: Reports: Hx Bronchitis, Hx COPD, Hx Tuberculosis - History of Neurological Medical History: Reports: Hx Cerebrovascular Accident, Hx Seizures - Multiple prior, typically accompanying his strokes. Endocrine Medical History: Reports: Hx Diabetes Mellitus Type 2. Denies: Hx Diabetes Mellitus Type 1, Hx Hyperthyroidism, Hx Hypothyroidism Renal/ Medical History: Denies: Hx Peritoneal Dialysis GI Medical History: Reports: Hx Gastroesophageal Reflux Disease, Hx Ulcer. Denies: Hx Cirrhosis, Hx Hepatitis Musculoskeltal Medical History: Reports Hx Arthritis Psychiatric Medical History: Reports: Hx Depression Infectious Medical History: Denies: Hx Hepatitis Past Surgical History: Reports: Hx Cholecystectomy - Immunizations Hx Diphtheria, Pertussis, Tetanus Vaccination: Yes Review of Systems - Review of Systems Constitutional: No symptoms reported EENT: No symptoms reported Cardiovascular: No symptoms reported Respiratory: No symptoms reported Gastrointestinal: See HPI Genitourinary: No symptoms reported Male Genitourinary: No symptoms reported Musculoskeletal: No symptoms reported Skin: No symptoms reported Hematologic/Lymphatic: No symptoms reported Neurological/Psychological: No symptoms reported Physical Exam - Vital signs Vitals: Temp Pulse Resp BP Pulse Ox 99.2 F 113 H 20 100/70 95 01/05/17 00:03 01/05/17 00:03 01/05/17 00:03 01/05/17 00:03 01/05/17 00:03 Interpretation: Normal - General General appearance: Appears well, Alert In distress: None - Patient alert, conversational, well-appearing - HEENT Head: Normocephalic, Atraumatic Eyes: Normal Extraocular movements intact: Yes Eyelashes: Normal - Respiratory Respiratory status: No respiratory distress Chest status: Nontender Breath sounds: Normal Chest palpation: Normal - Cardiovascular Rhythm: Irregularly irregular Heart sounds: Normal auscultation Murmur: No - Abdominal Inspection: Normal Distension: No distension Bowel sounds: Normal Tenderness: Tender - Mild mid to upper abdominal tenderness, otherwise unremarkable - Back Back: Normal, Nontender. No: Tender - Extremities General upper extremity: Normal inspection, Nontender, Normal color, Normal ROM , Normal temperature General lower extremity: Normal inspection, Nontender, Normal color, Normal ROM , Normal temperature, Normal weight bearing. No: Juan's sign - Neurological Neuro grossly intact: Yes Cognition: Normal Orientation: AAOx4 Miki Coma Scale Eye Opening: Spontaneous [place] Coma Scale Verbal: Oriented [place] Coma Scale Motor: Obeys Commands Miki Coma Scale Total: 15 Speech: Normal Motor strength normal: LUE, RUE, LLE, RLE Sensory: Normal - Psychological Associated symptoms: Normal affect, Normal mood - Skin Skin Temperature: Warm Skin Moisture: Dry Skin Color: Normal Course - Re-evaluation Re-evalutation: CBC shows mild leukocytosis with no shift, nonspecific with history given of vomiting. Patient with mild mid to upper abdominal tenderness, no guarding, no fever, borderline tachycardia with atrial fibrillation. Chest pain, denying current nausea, after Zofran and Pepcid patient asking for by mouth fluids/ crackers. X-ray unremarkable with no acute findings. Patient still is borderline tachycardia, CT will be obtained to rule out any intra-abdominal pathology. Discussed with Dr. Barlow. No acute findings on imaging, patient tolerating by mouth fluids, denies any current symptoms, states he feels great and he wants to go back. Heart rate ranging from 70s to 100s, this was captured in the 100s but this ranged during his observation. Very low suspicion of any acute abnormality, reevaluated again and patient still complains of no symptoms. Discussed return precautions , patient will be discharged back to long-term care facility with return precautions. - Vital Signs Vital signs: Temp Pulse Resp BP Pulse Ox 99.2 F 107 H 18 121/68 94 01/05/17 00:03 01/05/17 02:13 01/05/17 02:13 01/05/17 03:01 01/05/17 03:01 - Laboratory Result Diagrams: 01/05/17 01:00 01/05/17 01:00 Laboratory results interpreted by me: 01/05/17 01/05/17 01:00 01:00 WBC 13.1 H Monocytes % 13.9 H Absolute Neutrophils 8.8 H Absolute Monocytes 1.8 H BUN 21 H Glucose 217 H Alkaline Phosphatase 145 H Discharge - Discharge Clinical Impression: Abdominal pain Qualifiers: Abdominal location: generalized Qualified Code(s): R10.84 - Generalized abdominal pain Vomiting Qualifiers: Vomiting type: unspecified Vomiting Intractability: non-intractable Nausea presence: with nausea Qualified Code(s): R11.2 - Nausea with vomiting, unspecified Condition: Stable Disposition: HOME, SELF-CARE Additional Instructions: Rehydration has been given. Give Zofran if needed for nausea, give Pepcid along with this. Start with clear fluids and bland foods initially. CAT scan shows no acute abnormality. Chemistry unremarkable. Could be viral, nonspecific. Return immediately for any concerning worsening symptoms such as uncontrolled vomiting, fever, chest pain, abdominal pain, black stools, vomiting blood, etc. Prescriptions: Ondansetron [Zofran Odt 4 mg Tablet] 1 tab PO Q4H PRN #15 tab.rapdis PRN Reason: For Nausea/Vomiting Referrals: JUANY ROBERTO, [employer]IVE [Primary Care Provider] - Follow up as needed
[2017-01-05 01:15] LABS: ABSOLUTE BASOPHILS # (AUTO) 0.1 10^3/uL (0.0-0.2); ABSOLUTE EOSINOPHILS # (AUTO) 0.2 10^3/uL (0.0-0.6); ABSOLUTE LYMPHOCYTES (AUTO) 2.2 10^3/uL (0.5-4.7); ABSOLUTE MONOCYTES (AUTO) 1.8 10^3/uL (0.1-1.4); ABSOLUTE NEUT (AUTO) 8.8 10^3/uL (1.7-8.2); BASOPHILS % (AUTO) 0.8 % (0-2); EOSINOPHILS % (AUTO) 1.6 % (0-6); HEMATOCRIT 44.6 % (37.9-51.0); HEMOGLOBIN 14.9 g/dL (13.5-17.0); HGB HCT DIFFERENCE 0.1; LYMPHOCYTES % (AUTO) 16.6 % (13-45); MEAN CORPUSCULAR HEMOGLOBIN 29.8 pg (27.0-33.4); MEAN CORPUSCULAR HGB CONC 33.3 g/dL (32.0-36.0); MEAN CORPUSCULAR VOLUME 89 fl (80-97); MONOCYTES % (AUTO) 13.9 % (3-13); RED BLOOD COUNT 4.99 10^6/uL (4.35-5.55); RED CELL DISTRIBUTION WIDTH 13.8 % (11.5-14.0); SEGMENTED NEUTROPHILS % (AUTO) 67.1 % (42-78); WHITE BLOOD COUNT 13.1 10^3/uL (4.0-10.5)
[2017-01-05 01:35] LABS: ALANINE AMINOTRANSFERASE 22 U/L (21-72); ALBUMIN 3.8 g/dL (3.5-5.0); ALKALINE PHOSPHATASE 145 U/L (38-126); ANION GAP 13 (5-19); ASPARTATE AMINO TRANSFERASE 23 U/L (17-59); BILIRUBIN,DIRECT 0.4 mg/dL (0.0-0.4); BILIRUBIN,TOTAL 0.7 mg/dL (0.2-1.3); BLOOD UREA NITROGEN 21 mg/dL (7-20); CALCIUM 9.8 mg/dL (8.4-10.2); CARBON DIOXIDE 25 mmol/L (22-30); CHLORIDE 101 mmol/L (98-107); CREATININE RESULT 0.89 mg/dL (0.52-1.25); GLUCOSE 217 mg/dL (75-110); LIPASE 46.1 U/L (23-300); POTASSIUM 4.3 mmol/L (3.6-5.0); SODIUM 139.2 mmol/L (137-145); TOTAL PROTEIN 7.2 g/dL (6.3-8.2)
[2017-01-05 03:03] LABS: APPEARANCE,URINE SLIGHTLY-CLOUDY; BILIRUBIN,URINE NEGATIVE (NEGATIVE); GLUCOSE, URINE NEGATIVE (NEGATIVE); KETONES,URINE NEGATIVE (NEGATIVE); LEUKOCYTE ESTERASE,URINE NEGATIVE (NEGATIVE); NITRITE,URINE NEGATIVE (NEGATIVE); PROTEIN,URINE NEGATIVE (NEGATIVE); URINE SPECIFIC GRAVITY 1.017; UROBILINOGEN,URINE NEGATIVE mg/dL (<2.0)
[2017-01-05 06:41] VITALS: BP 120/78
== END 2017-01-05 06:50 | disposition home or self-care (01) ==
LOC: ER 23:48
DX: R10.84 Generalized abdominal pain (principal); R11.2 Nausea with vomiting, unspecified; R10.10 Upper abdominal pain, unspecified
CPT/HCPCS: 99285; 96361; 96374; 36415; 83690; 85025; 80053; 81001; 74022; 74177; A9270; J2405; J7030

== ENCOUNTER 2017-01-09 16:28 | Emergency (ER) | payer MEDICARE, OTHER ==
--- NOTE | 2017-01-09 18:18 | ER Document Report ---
ED Medical Screen (RME) - General Stated Complaint: IVC W/PAPERS Time Seen by Provider: 01/09/17 18:14 Mode of Arrival: Ambulatory Information source: Patient, Law Enforcement Notes: Patient presents emergency department via [facility] Department from [facility] with reports that he is a danger to himself and others. Patient apparently walked out of the facility in front of an 18 rose. Patient also threatened employees. TRAVEL OUTSIDE OF THE [place] IN LAST 30 DAYS: No - Related Data Allergies/Adverse Reactions: naproxen Allergy (Verified 01/05/17 00:02) Past Medical History - Past Medical History Cardiac Medical History: Reports: Hx Hypercholesterolemia, Hx Hypertension Denies: Hx Congestive Heart Failure, Hx DVT, Hx Heart Attack, Hx Pulmonary Embolism Pulmonary Medical History: Reports: Hx Bronchitis, Hx COPD, Hx Tuberculosis - History of Neurological Medical History: Reports: Hx Cerebrovascular Accident, Hx Seizures - Multiple prior, typically accompanying his strokes. Endocrine Medical History: Reports: Hx Diabetes Mellitus Type 2. Denies: Hx Diabetes Mellitus Type 1, Hx Hyperthyroidism, Hx Hypothyroidism Renal/ Medical History: Denies: Hx Peritoneal Dialysis GI Medical History: Reports: Hx Gastroesophageal Reflux Disease, Hx Ulcer. Denies: Hx Cirrhosis, Hx Hepatitis Musculoskeltal Medical History: Reports Hx Arthritis Psychiatric Medical History: Reports: Hx Depression Infectious Medical History: Denies: Hx Hepatitis Past Surgical History: Reports: Hx Cholecystectomy - Immunizations Hx Diphtheria, Pertussis, Tetanus Vaccination: Yes
[2017-01-09 19:28] LABS: ABSOLUTE BASOPHILS # (AUTO) 0.1 10^3/uL (0.0-0.2); ABSOLUTE EOSINOPHILS # (AUTO) 0.3 10^3/uL (0.0-0.6); ABSOLUTE LYMPHOCYTES (AUTO) 2.6 10^3/uL (0.5-4.7); ABSOLUTE MONOCYTES (AUTO) 1.2 10^3/uL (0.1-1.4); ABSOLUTE NEUT (AUTO) 7.9 10^3/uL (1.7-8.2); BASOPHILS % (AUTO) 0.5 % (0-2); EOSINOPHILS % (AUTO) 2.6 % (0-6); HEMATOCRIT 47.2 % (37.9-51.0); HEMOGLOBIN 15.9 g/dL (13.5-17.0); HGB HCT DIFFERENCE 0.5; LYMPHOCYTES % (AUTO) 21.5 % (13-45); MEAN CORPUSCULAR HEMOGLOBIN 29.9 pg (27.0-33.4); MEAN CORPUSCULAR HGB CONC 33.6 g/dL (32.0-36.0); MEAN CORPUSCULAR VOLUME 89 fl (80-97); MONOCYTES % (AUTO) 10.2 % (3-13); RED BLOOD COUNT 5.29 10^6/uL (4.35-5.55); RED CELL DISTRIBUTION WIDTH 13.8 % (11.5-14.0); SEGMENTED NEUTROPHILS % (AUTO) 65.2 % (42-78); WHITE BLOOD COUNT 12.1 10^3/uL (4.0-10.5)
--- NOTE | 2017-01-09 19:40 | ER Document Report ---
ED General - General Chief Complaint: Psych Problem Stated Complaint: IVC W/PAPERS Time Seen by Provider: 01/09/17 18:14 Mode of Arrival: Ambulatory Cannot obtain history due to: Dementia, Uncooperative Notes: Patient is a 66-year-old male with past medical history of dementia and previous psychiatric disorders although these are not clear based on prior notes or patient availability for history who presents on IVC papers in the custody of [facility]. Patient apparently has become increasingly aggressive toward staff at his nursing facility and apparently ran away from the facility today, almost running traffic. The patient himself denies any of these allegations although staff at the facility who were contacted confirm that indeed patient did try to run into traffic today. Patient denies any suicidal or homicidal ideation. States "I don't know why the hell I am here". He denies any acute medical complaints. TRAVEL OUTSIDE OF THE [place] IN LAST 30 DAYS: No - Related Data Allergies/Adverse Reactions: naproxen Allergy (Verified 01/05/17 00:02) Home Medications: Current Home Medications Acetaminophen 650 mg PO Q4 PRN 01/09/17 [History] Insulin Glargine,Hum.rec.anlog [Lantus] 20 units SUBCUT QHS 01/09/17 [History] Lisinopril 20 mg PO DAILY 01/09/17 [History] Ondansetron [Ondansetron Odt] 4 mg PO Q4H 01/09/17 [History] Past Medical History - General Information source: Patient, Law Enforcement - Social History Smoking Status: Former Smoker Frequency of alcohol use: None Drug Abuse: None Lives with: Shelter Family History: Reviewed & Not Pertinent Patient has suicidal ideation: Yes - Past Medical History Cardiac Medical History: Reports: Hx Hypercholesterolemia, Hx Hypertension Denies: Hx Congestive Heart Failure, Hx DVT, Hx Heart Attack, Hx Pulmonary Embolism Pulmonary Medical History: Reports: Hx Bronchitis, Hx COPD, Hx Tuberculosis - History of Neurological Medical History: Reports: Hx Cerebrovascular Accident, Hx Seizures - Multiple prior, typically accompanying his strokes. Endocrine Medical History: Reports: Hx Diabetes Mellitus Type 2. Denies: Hx Diabetes Mellitus Type 1, Hx Hyperthyroidism, Hx Hypothyroidism Renal/ Medical History: Denies: Hx Peritoneal Dialysis GI Medical History: Reports: Hx Gastroesophageal Reflux Disease, Hx Ulcer. Denies: Hx Cirrhosis, Hx Hepatitis Musculoskeltal Medical History: Reports Hx Arthritis Psychiatric Medical History: Reports: Hx Depression Infectious Medical History: Denies: Hx Hepatitis Past Surgical History: Reports: Hx Cholecystectomy - Immunizations Hx Diphtheria, Pertussis, Tetanus Vaccination: Yes Review of Systems - Review of Systems Notes: Constitutional: Negative for fever. HENT: Negative for sore throat. Eyes: Negative for visual changes. Cardiovascular: Negative for chest pain. Respiratory: Negative for shortness of breath. Gastrointestinal: Negative for abdominal pain, vomiting or diarrhea. Genitourinary: Negative for dysuria. Musculoskeletal: Negative for back pain. Skin: Negative for rash. Neurological: Negative for headaches, weakness or numbness. 10 point ROS negative except as marked above and in HPI. Physical Exam - Vital signs Vitals: Temp Pulse Resp BP Pulse Ox 97.5 F 116 H 18 141/82 H 97 01/09/17 18:19 01/09/17 18:19 01/09/17 18:19 01/09/17 18:19 01/09/17 18:19 Interpretation: Tachycardic Notes: PHYSICAL EXAMINATION: GENERAL: Well-appearing, well-nourished and in no acute distress. HEAD: Atraumatic, normocephalic. EYES: Pupils equal round and reactive to light, extraocular movements intact, sclera anicteric, conjunctiva are normal. ENT: nares patent, oropharynx clear without exudates. Moist mucous membranes. NECK: Normal range of motion, supple without lymphadenopathy LUNGS: Breath sounds clear to auscultation bilaterally and equal. No wheezes rales or rhonchi. HEART: Regular rate and rhythm without murmurs ABDOMEN: Soft, nontender, normoactive bowel sounds. No guarding, no rebound. No masses appreciated. EXTREMITIES: Normal range of motion, no pitting or edema. No cyanosis. NEUROLOGICAL: No focal neurological deficits. Moves all extremities spontaneously and on command. PSYCH: Seems easily agitated. Denies any suicidal or homicidal ideation. SKIN: Warm, Dry, normal turgor, no rashes or lesions noted. Course - Re-evaluation Re-evalutation: 01/09/17 19:38 Patient presents with staff reports that his facility that he has become increasingly agitated, aggressive and erratic. He apparently ran from the facility today and apparently almost ran into traffic. Patient himself denies these accounts but staff at the facility that we did contact states that it did occur and that patient has become increasingly difficult to control over the last 4-5 days. At my assessment the patient denies any acute suicidal or homicidal ideation although it appears there is a significant component of dementia. Given reports of increasingly dangerous behaviors I will maintain the IVC which the patient was sent to the emergency department. A medical screening exam is unremarkable. Laboratories have been sent and will be reviewed he is clear for psychiatric evaluation. 01/09/17 22:17 - Vital Signs Vital signs: Temp Pulse Resp BP Pulse Ox 97.5 F 116 H 18 141/82 H 97 01/09/17 18:19 01/09/17 18:19 01/09/17 18:19 01/09/17 18:19 01/09/17 18:19 - Laboratory Result Diagrams: 01/09/17 19:00 01/09/17 19:00 Laboratory results interpreted by me: 01/09/17 01/09/17 19:00 19:00 WBC 12.1 H Glucose 185 H Direct Bilirubin 0.5 H Alkaline Phosphatase 144 H Salicylates < 1.0 L Acetaminophen < 10 L - EKG Interpretation by Me Additional EKG results interpreted by me: 01/09/17 19:40 Sinus tachycardia. Rate 103. No ST elevations or depressions. QTC is 471. Discharge - Discharge Clinical Impression: Aggressive behavior Condition: Stable Disposition: PSYCH HOSP/UNIT Referrals: JUANY ROBERTO NP [Primary Care Provider] - Follow up as needed
[2017-01-09 19:46] LABS: ALANINE AMINOTRANSFERASE 30 U/L (21-72); ALBUMIN 4.5 g/dL (3.5-5.0); ALCOHOL < 10 mg/dL (NONE DETECTED); ALKALINE PHOSPHATASE 144 U/L (38-126); ANION GAP 13 (5-19); ASPARTATE AMINO TRANSFERASE 29 U/L (17-59); BILIRUBIN,DIRECT 0.5 mg/dL (0.0-0.4); BILIRUBIN,TOTAL 0.8 mg/dL (0.2-1.3); BLOOD UREA NITROGEN 9 mg/dL (7-20); CALCIUM 9.9 mg/dL (8.4-10.2); CARBON DIOXIDE 27 mmol/L (22-30); CHLORIDE 101 mmol/L (98-107); CREATININE RESULT 0.72 mg/dL (0.52-1.25); GLUCOSE 185 mg/dL (75-110); SODIUM 141.3 mmol/L (137-145)
--- NOTE | 2017-01-09 22:04 | EKG REPORT ---
SEVERITY:- BORDERLINE ECG - SINUS TACHYCARDIA WITH APCs : Confirmed by: Mark Mays 09-Jan-2017 22:03:38
[2017-01-09] MEDS ORDERED: INSULIN REG, HUMAN 100 UNIT/ML 3 ML VIAL (PYX) SUBCUT PRN (22:13)
[2017-01-09] MEDS ORDERED: DEXTROSE 40% GEL 15 GM TUBE PO PRN ×2 (22:13)
[2017-01-09] MEDS ORDERED: GLUCAGON,HUMAN RECOMB 1 MG INJ IM PRN (22:13)
[2017-01-09] MEDS ORDERED: DEXTROSE 50%-WATER 25 GM/50 ML DISP.SYRIN IV PRN ×2 (22:13)
[2017-01-09] MEDS ORDERED: ACETAMINOPHEN 325 MG TABLET PO PRN (23:38)
[2017-01-10] MEDS ORDERED: INSULIN GLARGINE,HUM.REC.ANLOG 1,000 UNIT/10 ML UNIT SUBCUT ONE
[2017-01-10 03:02] LABS: APPEARANCE,URINE CLEAR; BILIRUBIN,URINE NEGATIVE (NEGATIVE); GLUCOSE, URINE 50 mg/dL (NEGATIVE); KETONES,URINE NEGATIVE (NEGATIVE); LEUKOCYTE ESTERASE,URINE NEGATIVE (NEGATIVE); NITRITE,URINE NEGATIVE (NEGATIVE); PROTEIN,URINE NEGATIVE (NEGATIVE)
[2017-01-10 03:10] LABS: URINE BARBITURATES SCREEN NEGATIVE; URINE METHADONE SCREEN NEGATIVE; URINE PHENCYCLIDINE SCREEN NEGATIVE
[2017-01-10 03:18] LABS: URINE OPIATES LOW NEGATIVE
[2017-01-10] MEDS ORDERED: ONDANSETRON 4 MG TAB.RAPDIS PO PRN (07:38)
[2017-01-10] MEDS ORDERED: LISINOPRIL 10 MG TABLET PO SCH (10:00)
[2017-01-10 13:27] VITALS: BP 142/76
[2017-01-10] MEDS ORDERED: INSULIN GLARGINE,HUM.REC.ANLOG 300 UNIT/3 ML INSULN.PEN SUBCUT SCH (22:00)
== END 2017-01-10 13:05 | disposition home health service (06) ==
LOC: ER 16:28
DX: F03.90 Unspecified dementia, unspecified severity, without behavioral disturbance, psychotic disturbance, mood disturbance, and anxiety (principal); F91.1 Conduct disorder, childhood-onset type; E78.00 Pure hypercholesterolemia, unspecified; I10 Essential (primary) hypertension; J44.9 Chronic obstructive pulmonary disease, unspecified; Z86.11 Personal history of tuberculosis; E11.9 Type 2 diabetes mellitus without complications; Z90.49 Acquired absence of other specified parts of digestive tract; K21.9 Gastro-esophageal reflux disease without esophagitis
CPT/HCPCS: 93005; 99284; 36415; 82962; 80307 ×4; 85025; 80053; 81001; 93010; A9270 ×2; J1815